=== PATIENT | male | born 1965 | race Caucasian/White ===

== ENCOUNTER 2016-09-04 11:59 | Observation (INO) ==
[2016-09-04] MEDS ORDERED: NITROGLYCERIN SL 0.4 MG TABLET SL ONE (12:20)
[2016-09-04] MEDS ORDERED: NITROGLYCERIN SL 0.4 MG TABLET SL PRN ×2 (12:24→14:25)
[2016-09-04] MEDS ORDERED: ASPIRIN 325 MG TABLET PO STA (12:24)
[2016-09-04] MEDS ORDERED: ENOXAPARIN 100 MG/ML SYRINGE SUBCUT STA (12:24)
--- NOTE | 2016-09-04 12:27 | EKG Report ---
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
[2016-09-04 12:35] LABS: Basophils # 0.1 10*3/uL (0.0-0.2); Basophils % 0.5 % (0.0-0.8); Eosinophils # 0.4 10*3/uL (0.0-0.87); Eosinophils % 3.7 % (0.00-10.9); Hematocrit 47.4 VOL% (42.0-52.0); Hemoglobin 15.7 GM/DL (14.0-18.0); Immature Granulocytes % 0.4 %; Immature Granulocytes Absolute 0.04 #; Lymphocytes # 1.9 10*3/uL (1.4-4.0); Lymphocytes % 17.1 % (21.2-54.2); Mean Corpuscular HGB Conc 33.1 GM/DL (32-36); Mean Corpuscular Hemoglobin 30 PG (27-34); Mean Corpuscular Volume 89.6 FL (87-102); Mean Platelet Volume 10.3 FL (9.6-12.0); Monocytes # 1.1 10*3/uL (0.11-0.8); Monocytes % 9.6 % (1.7-12.7); Neutrophils # 7.7 10*3/uL (1.4-7.4); Neutrophils % 68.7 % (38.7-73.9); Platelet Count 194 T/CUMM (130-400); Red Blood Count 5.29 MC/CUMM (3.8-5.5); Red Cell Distribution Width 12.6 % (9.3-17.3); White Blood Count 11.2 T/CUMM (4-12)
[2016-09-04] MEDS ORDERED: ENOXAPARIN 100 MG/ML SYRINGE SUBCUT ONE (12:38)
[2016-09-04 12:44] LABS: PT Patient Result 10.6 SECS
[2016-09-04 13:08] LABS: Albumin 3.8 G/DL (3.4-5.0); Bilirubin,Total 0.4 MG/DL (0.2-1.0); Calcium 9.1 MG/DL (8.5-10.1); Osmolality,Calculated 294.1 MOS/KG (273-304); Potassium 3.8 MMOL/L (3.5-5.1); Total Protein 7.4 G/DL (6.4-8.3)
--- NOTE | 2016-09-04 13:41 | Emergency Department Note ---
Abhinav Hadley Meredith, am scribing for, and in the presence of, Samir Fajardo MD 12:16. Scotty Hadley Phillip K, MD, personally performed the services described in this documentation, ascribed by Marleen La in my presence, and it is both accurate and complete [id number] . Arrival - Arrival Chief Complaint: Chest Pain Stated Complaint: chest pain/stomach pain ED Nursing Triage Note: c/o pain in lt side of chest for 5 days. also c/o pain in abd. +nausea Mode of Arrival: Ambulatory Limitations: No Limitations Source: Patient, Significant other (), Old Records Reviewed, RN Notes Reviewed Time Seen by Provider: 09/04/16 12:10 - History of Present Illness HPI Narrative: Pt is a 51 y/o white male reporting to the ED with c/o intermittent left-sided chest pain which onset 2 days ago. He describes the pain as a twisting sensation. He took 2 NTG yesterday which did ease his pain. Pt confirms radiation of pain into his left neck, abdominal pain, nausea, and shortness of breath but denies any vomiting, diaphoresis, or fever. He had a history of CAD, HTN, KS, migraine, TIA, IDDM, HLD, gastroparesis, and anaphylaxis. Pt takes ASA daily. He is a former smoker. Onset (ago): day(s) Consistency: intermittent Allergies/Adverse Reactions: Allergies Allergy/AdvReac Type Severity Reaction Status Date / Time diazepam [From Valium] Allergy Confusion Verified 11/06/15 20:29 sulfamethoxazole Allergy Swelling Verified 11/06/15 20:29 [From Bactrim] of Lip/Tongue/Throat trimethoprim [From Bactrim] Allergy Swelling Verified 11/06/15 20:29 of Lip/Tongue/Throat codeine AdvReac Nausea Verified 11/06/15 20:29 Home Medications: Home Medications Medication Instructions Recorded Confirmed Type Methocarbamol Tab [Robaxin Tab] 750 mg PO Q8H 09/17/14 04/27/16 History Promethazine Tab [Phenergan Tab] 25 mg PO Q6H PRN 09/17/14 04/27/16 History Topiramate [Topamax] 100 mg PO BID 02/09/15 04/27/16 History Aspirin Tab 325 mg PO DAILY 08/23/15 04/27/16 History Gabapentin Cap/Tab [Neurontin 1,200 mg PO BID 08/23/15 04/27/16 History Cap/Tab] Liraglutide [Victoza 2-Prakash] 1.2 mg SQ QAM 08/23/15 04/27/16 History Albuterol Inhaler [Proventil 2 puff INH Q6H PRN #1 inhaler 11/06/15 04/27/16 Rx Inhaler] Insulin Aspart [NovoLOG FlexPen] 0 units SUBCUT BID PRN 04/27/16 04/27/16 History Insuln Asp Prt/Insulin Aspart 30 units SUBCUT QPM 04/27/16 04/27/16 History [NovoLOG Mix 70-30 FlexPen] Insuln Asp Prt/Insulin Aspart 70 units SUBCUT QAM 04/27/16 04/27/16 History [NovoLOG Mix 70-30 FlexPen] Lisinopril 2.5 mg PO DAILY 04/27/16 04/27/16 History Metoprolol Succinate 12.5 mg PO DAILY 04/27/16 04/27/16 History Nitroglycerin Sl Tab [Nitrostat] 0.4 mg SL Q5M PRN 04/27/16 04/27/16 History Oxycodone HCl/Acetaminophen 1 each PO Q6H PRN 04/27/16 04/27/16 History [Oxycodone-Acetaminophen 10-325] Ranolazine [Ranexa] 500 mg PO BID 04/27/16 04/27/16 History Simvastatin [Simvastatin] 10 mg PO BEDTIME 04/27/16 04/27/16 History amLODIPine [Norvasc] 2.5 mg PO DAILY 04/27/16 04/27/16 History dimenhyDRINATE TAB [Dramamine] 50 mg PO Q4-6H PRN 04/27/16 04/27/16 History Review of System - Review of System 12 point system: reviewed and no additional remarkable complaints except as stated - Review of System Constitutional: Present: as per HPI. Absent: diaphoresis, fever Respiratory: Present: as per HPI, other (SOB) Cardiovascular: Present: as per HPI, chest pain Gastrointestinal: Present: as per HPI, abdominal pain, nausea. Absent: vomiting Musculoskeletal: Present: as per HPI, neck pain (left-sided radiating from chest ) Medical,Surgical,& Family Hx - Medical History Cardio: History of: CAD, Hypertension, KS (x1 stent, on 08/03/14) Neurology: History of: Migraine, TIA No history of: Seizures HEENT: History of: Ear Problem (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) Endocrine: History of: Diabetes Mellitus (IDDM), Dyslipidemia Gastrointestinal: History of: GI Problems (gastroparesis) Musculoskeletal: History of: Back/Neck Problems Hematology: History of: Blood Transfusion Reaction (ON CHART, BUT PT STATES NO HISTORY OF REACTION TO BLOOD TRANSFUSION) Other: History of: Anaphylaxis (BACTRIM AND CODIENE) - Surgical History Cardiac Surgeries: Sugical HX of: Femoral-Popliteal Bypass Graft (August 2011), Cardiac Catheterization, Cardiac Surgery (cabg 2011 bouble bypass) Abdominal Surgeries: Surgical HX of: Appendectomy, Cholecystectomy, Colonoscopy , EGD - Family History Family History: Reports;: Family Cancer, Family Diabetes (MOTHER, FATHER), Family Heart Disease (MOTHER, FATHER), Family Hypertension (MOTHER, FATHER), Family Stroke Denies;: Family Psychiatric Problems - Social History Smoking Status: Former smoker Frequency of Alcohol Use: Occasionally Type of Drug Use: None Exam Vital Signs: Vital Signs Temperature 97.8 F 09/04/16 12:01 Pulse Rate 99 H 09/04/16 12:01 Respiratory Rate 18 09/04/16 12:01 Blood Pressure 118/86 09/04/16 12:01 O2 Sat by Pulse Oximetry 96 09/04/16 12:01 - General General appearance: alert, in no apparent distress - Head Head exam: Present: atraumatic, normocephalic - Eye Eye exam: Present: normal appearance, PERRL, EOMI - ENT ENT exam: Present: mucous membranes moist, normal external ear exam - Neck Neck exam: Present: full ROM, trachea midline. Absent: tenderness, meningismus , lymphadenopathy, thyromegaly - Chest Chest inspection: Present: symmetric chest wall rise. Absent: tenderness, rash - Respiratory Respiratory exam: Present: normal lung sounds bilaterally. Absent: respiratory distress - Cardiovascular Cardiovascular exam: Present: regular rate, normal rhythm, normal heart sounds. Absent: murmur, rubs, gallop - Abdominal Exam Abdominal exam: Present: soft, normal bowel sounds. Absent: distention, tenderness - Extremities Exam Extremities exam: Present: full ROM, normal capillary refill. Absent: tenderness, pedal edema, calf tenderness - Back Exam Back exam: Present: full ROM. Absent: tenderness - Neurological Exam Neurological exam: Present: alert, oriented X3, CN II-XII intact. Absent: motor sensory deficit - Psychiatric Psychiatric exam: Present: normal affect, normal mood - Skin Skin exam: Present: warm, dry, intact, normal color Course Course Narrative: Patient discussed with Wilder who will admit and evaluate in the ED. Results - Labs CBC & BMP: 09/04/16 12:22 09/04/16 12:22 Lab Results: I have reviewed the patients labs Labs: Laboratory Tests 09/04/16 12:22 WBC 11.2 RBC 5.29 Hgb 15.7 Hct 47.4 Plt Count 194 Lymph % (Auto) 17.1 L Neut # (Auto) 7.7 H [place] # (Auto) 1.1 H Laboratory Tests 09/04/16 12:22 INR 1.0 PT Patient/Control Mix 10.6 - EKG EKG results: interpreted by PAUL, sinus rhythm (nonspecific ST-T changes) - Diagnostic Findings Procedure: Chest x-ray: report reviewed by me (No acute cardiopulmonary disease. ) Disposition Clinical Impression: Unstable angina, History of coronary artery bypass graft x 2, Diabetes mellitus , Status post angioplasty with stent, Essential hypertension, Dyslipidemia Case discussed with: patient, patient's family Disposition: Still a Patient Condition: Guarded Additional Instructions: Admit to Dr. Hdz
--- NOTE | 2016-09-04 13:52 | XRay Report ---
XR chest 1V Indication: Chest pain. Chest one view: Comparison 04/27/2016. ACDF and median sternotomy wires are again shown. Heart size and mediastinal contour remain normal. No infiltrates. Mildly coarsened interstitial markings and lungs are stable. Scattered calcified granulomata are stable. Impression: No acute cardiopulmonary disease. PROCEDURE INTERPRETED AT [facility] DEPARTMENT OF RADIOLOGY Final Report Signed by: Coy Todd M.D.
--- NOTE | 2016-09-04 14:15 | Cardiology History & Physical ---
<Judy Childs E - Last Filed: 09/04/16 14:28> Assessment and Plan - Time spent with patient Time spent with patient: Greater than 30 minutes (1) Sleep apnea Status: Chronic Assessment and plan: SEE PLAN OF CARE LISTED BELOW Current Visit: Yes (2) Right calf pain Status: Acute Assessment and plan: SEE PLAN OF CARE LISTED BELOW Current Visit: Yes (3) Chest pain Status: Acute Assessment and plan: SEE PLAN OF CARE LISTED BELOW Current Visit: No Qualifiers: Chest pain type: chest pain due to myocardial ischemia Qualified Code(s): I20.9 - Angina pectoris, unspecified (4) Diabetes mellitus Status: Chronic Assessment and plan: SEE PLAN OF CARE LISTED BELOW Current Visit: No (5) History of coronary artery bypass graft x 2 Status: Chronic Assessment and plan: SEE PLAN OF CARE LISTED BELOW Current Visit: Yes (6) Diabetes mellitus Status: Chronic Assessment and plan: SEE PLAN OF CARE LISTED BELOW Current Visit: Yes (7) Dyslipidemia Status: Chronic Assessment and plan: SEE PLAN OF CARE LISTED BELOW Current Visit: Yes (8) Essential hypertension Status: Chronic Assessment and plan: SEE PLAN OF CARE LISTED BELOW Current Visit: Yes History of Present Illness Chief complaint: Chest pain, known coronary artery disease History of present illness: Patient is being seen in the emergency department at [facility]. Mr. Solano is a 51 year old male routinely followed by Dr. Ricco Gresham. He was last seen in cardiology clinic June 27, 2016. Risk factors include: Known coronary artery disease, diabetes, hypertension, dyslipidemia, obesity, sedentary lifestyle, family history of premature coronary artery disease. He has a history of coronary artery bypass grafting 2 August 16, [address] Jenkins with the following noted: SWANSON to LAD, SVG to OM1. Last cardiac catheterization February 11, [address] Gresham revealed the followin.) 1 if 2 grafts patent with occlusion of the circumflex vein graft no supplied by collaterals from the distal right and from the diagonal branches of LAD 2.) Severe algaaciq multivessel coronary artery disease 3.) Normal left ventricular size and function. At that point, recurrent pain was thought to be in the circumflex distribution. Repeat coronary bypass to the circumflex coronary artery was an option for medical management [place] at that time. Patient reports on Saturday mid afternoon, he began to experience chest pain described as "twisting and pulling" in the left chest area. This occurred when he was walking back from fishing. This waxed and waned and caused moderate shortness of breath. On Saturday, he continued to have the chest discomfort. It began to radiate to the left jaw into the left arm. He took 2 nitroglycerin and the discomfort improved. He rates his discomfort as a 7 on a scale of 1- 10. He can identify no aggravating nor any alleviating factors other than nitroglycerin. Because the discomfort continued, he felt as if he should be evaluated and he is being seen in the emergency department. He is currently chest pain-free after 1 sublingual nitroglycerin has been given. His first set of cardiac biomarkers are negative, EKG does not reveal an acute event. He is agreeable for hospitalization and he will be transferred to our telemetry unit where Dr. Gresham will see, evaluate and make additional recommendations. ASSESSMENT/PLAN: 1. CHEST PAIN -continue to cycle his cardiac biomarkers and EKG. Continue aspirin, beta blockade, DRU inhibitor, nitrates, lipid-lowering agent and Ranexa. Consider increasing dose of Ranexa. Will consider ordering echo outpatient. 2. KNOWN CAD S/P CABG X 2 2011 -SWANSON to LAD, SVG to OM 1. 3. HYPERTENSION -reports good control. Will adjust medications accordingly during the hospital stay. May consider stopping Norvasc and increasing DRU inhibitor if labs will allow. 4. DYSLIPIDEMIA -specifically hypertriglyceridemia by report. Fasting lipid profile in the morning. 5. DIABETES -sliding scale insulin at this time. 6. OBESITY -dietary counseling prior to discharge 7. SLEEP APNEA -patient is in the process of getting an appointment to see sleep medicine. In the past, he has sleep device but was not compliant with the mask therefore it was taken away. He is in the process of getting restudied. Will consider possible consult for sleep medicine while hospitalized versus outpatient appointment 8. RIGHT CALF PAIN - d-Dimer, venous US Home Medications Medication Instructions Recorded Confirmed Type Methocarbamol Tab [Robaxin Tab] 750 mg PO TID PRN 09/17/14 09/04/16 History Promethazine Tab [Phenergan Tab] 25 mg PO Q6H PRN 09/17/14 09/04/16 History Topiramate [Topamax] 100 mg PO QAM 02/09/15 09/04/16 History Albuterol Inhaler [Proventil 2 puff INH Q6H PRN #1 inhaler 11/06/15 09/04/16 Rx Inhaler] Insulin Aspart [NovoLOG FlexPen] See Protocol SUBCUT BID PRN 04/27/16 09/04/16 History Insuln Asp Prt/Insulin Aspart 30 units SUBCUT QPM 04/27/16 09/04/16 History [NovoLOG Mix 70-30 FlexPen] Insuln Asp Prt/Insulin Aspart 70 units SUBCUT QAM 04/27/16 09/04/16 History [NovoLOG Mix 70-30 FlexPen] Metoprolol Succinate 12.5 mg PO QPM 04/27/16 09/04/16 History Nitroglycerin Sl Tab [Nitrostat] 0.4 mg SL Q5M PRN 04/27/16 09/04/16 History Albuterol Sulfate [Proair HFA] 2 puff INH Q4H PRN 09/04/16 09/04/16 History Aspirin EC Tab 325 mg PO DAILY 09/04/16 09/04/16 History Canagliflozin [Invokana] 100 mg PO QAM 09/04/16 09/04/16 History Ergocalciferol (Vitamin D2) 50,000 unit PO MO 09/04/16 09/04/16 History [Vitamin D2] Gabapentin 1,200 mg PO BID 09/04/16 09/04/16 History Magnesium Chloride [Slow Mag] 64 mg PO DAILY 09/04/16 09/04/16 History Oxycodone HCl/Acetaminophen 1 each PO Q6H PRN 09/04/16 09/04/16 History [Oxycodone-Acetaminophen 10-325] Topiramate [Topamax] 150 mg PO BEDTIME 09/04/16 09/04/16 History tiZANidine [Zanaflex] 4 mg PO TID PRN 09/04/16 09/04/16 History Atorvastatin [Lipitor] 20 mg PO BEDTIME #30 tablet 09/05/16 Rx Azithromycin [Azithromycin Z Pack] 250 mg PO DIRECTED #1 packet 09/05/16 Rx Lisinopril [Prinivil] 5 mg PO DAILY #30 tablet 09/05/16 Rx Ranolazine [Ranexa] 1,000 mg PO BID #60 tablet 09/05/16 Rx Allergies Allergy/AdvReac Type Severity Reaction Status Date / Time diazepam [From Valium] Allergy Confusion Verified 11/06/15 20:29 sulfamethoxazole Allergy Swelling Verified 11/06/15 20:29 [From Bactrim] of Lip/Tongue/Throat trimethoprim [From Bactrim] Allergy Swelling Verified 11/06/15 20:29 of Lip/Tongue/Throat codeine AdvReac Nausea Verified 11/06/15 20:29 Review of systems: REVIEW OF SYSTEMS: - Constitutional Constitutional: Present: Fatigue. Absent: syncope, anorexia, night sweats - EENT Eyes: Absent: blurry vision, loss of vision, diplopia Ears: Absent: decreased hearing, ear pain, ear discharge - Cardiovascular Cardiovascular: Present: chest pain with exertion and at rest associated with mild shortness of breath. Denies edema, palpitations. Absent: chest pain with deep breath. Legs tire when walking but no cramping. - Respiratory Respiratory: Denies BROWN, cough. Absent: wheezing, hemoptysis, change in phlegm color - Gastrointestinal Gastrointestinal: Denies constipation. Absent: abdominal pain, hematemesis, hematochezia, melena, change in bowel habits, nausea - Genitourinary Genitourinary: Absent: difficulty urinating, dysuria, urinary hesitancy, flank pain - Musculoskeletal Musculoskeletal: Present: back pain Absent: joint swelling, muscle cramps, muscle weakness - Neurological Neurological: Present: normal gait without frequent falls. Absent: dizziness, hemiparesis - Psychiatric Psychiatric: Absent: anxiety, depression, difficulty concentrating - Endocrine Endocrine: Present: fatigue. Absent: cold intolerance, heat intolerance, polyuria, polyphagia, polydipsia - Hematologic/Lymphatic Hematologic/Lymphatic: Present: easy bruising. Absent: easy bleeding -Integumentary Integumentary: Right lower extremity reveals red raised rash. Absent: Skin breakdown Medical,Surgical,& Family Hx - Medical History Cardio: History of: CAD, Hypertension, [place] (x1 stent, on 08/03/14) Neurology: History of: Migraine, TIA No history of: Seizures HEENT: History of: Ear Problem (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) Endocrine: History of: Diabetes Mellitus (IDDM), Dyslipidemia Gastrointestinal: History of: GI Problems (gastroparesis, pancreatitis) Musculoskeletal: History of: Back/Neck Problems Hematology: History of: Blood Transfusion Reaction (ON CHART, BUT PT STATES NO HISTORY OF REACTION TO BLOOD TRANSFUSION) Other: History of: Anaphylaxis (BACTRIM AND CODIENE) - Surgical History Cardiac Surgeries: Sugical HX of: Femoral-Popliteal Bypass Graft (August 2011), Cardiac Catheterization, Cardiac Surgery (cabg 2011 bouble bypass) Abdominal Surgeries: Surgical HX of: Appendectomy, Cholecystectomy, Colonoscopy , EGD - Family History Family History: Reports;: Family Cancer, Family Diabetes (MOTHER, FATHER), Family Heart Disease (MOTHER, FATHER), Family Hypertension (MOTHER, FATHER), Family Stroke Denies;: Family Psychiatric Problems - Social History Smoking Status: Former smoker Have you smoked in the last 12 months: No Frequency of Alcohol Use: Occasionally Type of Drug Use: None Marital Status: Lives With:: Spouse Functional capacity: independent ambulation Cardiology Physical Exam - Constitutional Vitals: Vital Signs Temp Pulse Resp BP Pulse Ox 97.8 F 99 H 18 118/86 96 09/04/16 12:01 09/04/16 12:01 09/04/16 12:01 09/04/16 12:01 09/04/16 12:01 Intake and Output 09/03/16 09/04/16 09/04/16 23:59 07:59 15:59 Other: Weight 98.43 kg Patient Weight 09/04/16 23:59 Weight 98.43 kg Exam: General: [Appears well with no apparent distress.] [Pleasant and cooperative. ] [Appears comfortable.] HEENT: [PERRL, normocephalic, atraumatic. Mucous membranes moist. No jaundice noted. Conjunctiva moist and clear, sclerae anicteric] Neck: No JVD/HJR, no thyromegaly or lymphadenopathy noted. No carotid bruit appreciated Cardiac: [Regular rate and rhythm.] [No murmur rub or gallop.] Lungs: [Clear to auscultation without accessory muscle use to assist the respiratory pattern.] Not requiring oxygen Abdomen: Soft, bowel sounds normoactive. Nontender and nondistended. No abdominal bruit or thrill noted. No masses noted. Musculoskeletal: No fluid collection. Decreased range of motion is noted. Extremities: No clubbing, cyanosis noted. [ No edema noted.] Upper extremity pulses 2+. Lower extremity pulses 1+. Tenderness noted to right calf area. Capillary refill less than 3 seconds. Skin: Red raised rash noted to right medial lower extremity. No skin breakdown appreciated. Neuro: Awake, alert and oriented 3. Moves all extremities well without hemiparesis or paralysis. No essential tremor is appreciated. Result/EKG - Labs CBC & BMP: 09/04/16 12:22 09/04/16 12:22 Lab Results: I have reviewed the past 24 hour labs Labs: Laboratory Results - last 24 hr 09/04/16 09/04/16 09/04/16 12:22 12:22 12:22 WBC 11.2 RBC 5.29 Hgb 15.7 Hct 47.4 MCV 89.6 MCH 30 MCHC 33.1 RDW 12.6 Plt Count 194 MPV 10.3 Neut % (Auto) 68.7 Lymph % (Auto) 17.1 L Peach % (Auto) 9.6 Eos % (Auto) 3.7 Baso % (Auto) 0.5 Neut # (Auto) 7.7 H Lymph # (Auto) 1.9 Peach # (Auto) 1.1 H Eos # (Auto) 0.4 Baso # (Auto) 0.1 Immature Gran % 0.4 Nucleated RBC % 0.0 Immature Gran # 0.04 Nucleated RBCs # 0.00 INR 1.0 PT Patient/Control Mix 10.6 Sodium 142 Potassium 3.8 Chloride 108 H Carbon Dioxide 21 Anion Gap 16.8 H BUN 21 H Creatinine 1.00 GFR Calculation 106 BUN/Creatinine Ratio 21.00 H Glucose 261 H Calculated Osmolality 294.1 Calcium 9.1 Magnesium 2.0 Total Bilirubin 0.40 AST 17 ALT 32 Alkaline Phosphatase 81 Troponin I Total Protein 7.4 Albumin 3.8 Globulin 3.6 H Albumin/Globulin Ratio 1.0 L 09/04/16 12:22 WBC RBC Hgb Hct MCV MCH MCHC RDW Plt Count MPV Neut % (Auto) Lymph % (Auto) Peach % (Auto) Eos % (Auto) Baso % (Auto) Neut # (Auto) Lymph # (Auto) Peach # (Auto) Eos # (Auto) Baso # (Auto) Immature Gran % Nucleated RBC % Immature Gran # Nucleated RBCs # INR PT Patient/Control Mix Sodium Potassium Chloride Carbon Dioxide Anion Gap BUN Creatinine GFR Calculation BUN/Creatinine Ratio Glucose Calculated Osmolality Calcium Magnesium Total Bilirubin AST ALT Alkaline Phosphatase Troponin I < 0.015 Total Protein Albumin Globulin Albumin/Globulin Ratio - Diagnostic Findings Procedure: Chest x-ray: report reviewed by me - EKG EKG results: interpreted by me EKG shows: sinus rhythm <Marcelo Gresham - Last Filed: 09/05/16 11:06> History of Present Illness History of present illness: Mr. Solano is a 51 year old male well known to me. He is with fairly constant chest pain and I do not think that this is active ischemic heart disease. He does have an area in the circumflex distribution which is going to be a cause for significant ischemia. He does have multiple etiologies of chest discomfort and I do not think this is cardiac and we will plan to be certain that his enzymes are negative and then perform outpatient evaluation. Cardiology Physical Exam - Constitutional Vitals: Vital Signs Temp Pulse Resp BP Pulse Ox 97.9 F 97 H 18 130/89 100 09/05/16 08:00 09/05/16 08:00 09/05/16 08:00 09/05/16 08:00 09/05/16 08:00 Intake and Output 09/04/16 09/05/16 09/05/16 23:59 07:59 15:59 Intake Total 240 / 240 Balance 240 / 240 Intake: Oral 240 / 240 Other: Voiding Method Toilet Toilet # Voids 2 1 # Bowel Movements 1 1 Result/EKG - Labs CBC & BMP: 09/05/16 08:43 09/05/16 08:43 Labs: Laboratory Results - last 24 hr 09/04/16 09/04/16 09/04/16 16:45 18:04 18:04 WBC 10.0 RBC 5.04 Hgb 14.7 Hct 44.8 MCV 88.9 MCH 29 MCHC 32.8 RDW 12.7 Plt Count 190 MPV 10.6 Neut % (Auto) 58.1 Lymph % (Auto) 26.5 Peach % (Auto) 10.0 Eos % (Auto) 4.3 Baso % (Auto) 0.6 Neut # (Auto) 5.8 Lymph # (Auto) 2.6 Peach # (Auto) 1.0 H Eos # (Auto) 0.4 Baso # (Auto) 0.1 Immature Gran % 0.5 Nucleated RBC % 0.0 Immature Gran # 0.05 Nucleated RBCs # 0.00 INR PT Patient/Control Mix D-Dimer, Quantitative Sodium Potassium Chloride Carbon Dioxide Anion Gap BUN Creatinine GFR Calculation BUN/Creatinine Ratio Glucose POC Glucose 108 H Calculated Osmolality Calcium Magnesium Troponin I < 0.015 Free T4 TSH 3rd Generation 09/04/16 09/04/16 09/04/16 18:04 18:04 19:53 WBC RBC Hgb Hct MCV MCH MCHC RDW Plt Count MPV Neut % (Auto) Lymph % (Auto) Peach % (Auto) Eos % (Auto) Baso % (Auto) Neut # (Auto) Lymph # (Auto) Peach # (Auto) Eos # (Auto) Baso # (Auto) Immature Gran % Nucleated RBC % Immature Gran # Nucleated RBCs # INR PT Patient/Control Mix D-Dimer, Quantitative <= 0.5 Sodium Potassium Chloride Carbon Dioxide Anion Gap BUN Creatinine GFR Calculation BUN/Creatinine Ratio Glucose POC Glucose 231 H Calculated Osmolality Calcium Magnesium Troponin I Free T4 1.03 TSH 3rd Generation 0.873 09/04/16 09/05/16 09/05/16 21:42 08:01 08:43 WBC 11.2 RBC 4.97 Hgb 14.8 Hct 44.2 MCV 88.9 MCH 30 MCHC 33.5 RDW 12.6 Plt Count 196 MPV 10.7 Neut % (Auto) 67.4 Lymph % (Auto) 18.3 L Peach % (Auto) 9.6 Eos % (Auto) 3.9 Baso % (Auto) 0.4 Neut # (Auto) 7.6 H Lymph # (Auto) 2.1 Peach # (Auto) 1.1 H Eos # (Auto) 0.4 Baso # (Auto) 0.1 Immature Gran % 0.4 Nucleated RBC % 0.0 Immature Gran # 0.05 Nucleated RBCs # 0.00 INR PT Patient/Control Mix D-Dimer, Quantitative Sodium Potassium Chloride Carbon Dioxide Anion Gap BUN Creatinine GFR Calculation BUN/Creatinine Ratio Glucose POC Glucose 187 H Calculated Osmolality Calcium Magnesium Troponin I < 0.015 Free T4 TSH 3rd Generation 09/05/16 09/05/16 09/05/16 08:43 08:43 10:00 WBC RBC Hgb Hct MCV MCH MCHC RDW Plt Count MPV Neut % (Auto) Lymph % (Auto) Peach % (Auto) Eos % (Auto) Baso % (Auto) Neut # (Auto) Lymph # (Auto) Peach # (Auto) Eos # (Auto) Baso # (Auto) Immature Gran % Nucleated RBC % Immature Gran # Nucleated RBCs # INR 1.0 PT Patient/Control Mix 10.0 D-Dimer, Quantitative Sodium 139 Potassium 4.0 Chloride 104 Carbon Dioxide 24 Anion Gap 15.0 BUN 18 Creatinine 0.90 GFR Calculation 121 BUN/Creatinine Ratio 20.00 Glucose 208 H POC Glucose 207 H Calculated Osmolality 284.5 Calcium 8.5 Magnesium 2.0 Troponin I Free T4 TSH 3rd Generation
[2016-09-04] MEDS ORDERED: ALBUTEROL 2.5 MG/3 ML NEB RESP TX PRN (14:25)
[2016-09-04] MEDS ORDERED: oxyCODONE/ACETAMINOPHEN 5-325 MG TABLET PO PRN (14:25)
--- NOTE | 2016-09-04 15:28 | EKG Report ---
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
[2016-09-04] MEDS ORDERED: SODIUM CHLORIDE 0.45% 1,000 ML IV SCH (15:36)
[2016-09-04] MEDS ORDERED: GLUCAGON 1 MG VIAL IM PRN (15:36)
[2016-09-04] MEDS ORDERED: DEXTROSE 50% 25 GM/50 ML VIAL IV PRN (15:36)
--- NOTE | 2016-09-04 16:43 | Ultrasound Report ---
Bilateral lower extremity venous Doppler with claros scale, Spectral Doppler and color-flow analysis performed and interpreted. Indication: Right calf pain. Scanning over both common femoral veins, superficial femoral veins, greater saphenous veins and popliteal veins demonstrates normal compressibility, color flow, and augmentation. Impression: No evidence of DVT seen in either lower extremity. PROCEDURE INTERPRETED AT [facility] DEPARTMENT OF RADIOLOGY Final Report Signed by: Dr. Pamela León
[2016-09-04] MEDS: INSULIN REGULAR 100 UNIT/ML SUBCUT SCH ×2 (16:58→21:24)
[2016-09-04] MEDS: METHOCARBAMOL 750 MG TABLET PO SCH ×2 (16:59→23:04)
[2016-09-04 18:32] LABS: Basophils # 0.1 10*3/uL (0.0-0.2); Basophils % 0.6 % (0.0-0.8); Eosinophils # 0.4 10*3/uL (0.0-0.87); Eosinophils % 4.3 % (0.00-10.9); Hematocrit 44.8 VOL% (42.0-52.0); Hemoglobin 14.7 GM/DL (14.0-18.0); Immature Granulocytes % 0.5 %; Immature Granulocytes Absolute 0.05 #; Lymphocytes # 2.6 10*3/uL (1.4-4.0); Lymphocytes % 26.5 % (21.2-54.2); Mean Corpuscular HGB Conc 32.8 GM/DL (32-36); Mean Corpuscular Hemoglobin 29 PG (27-34); Mean Corpuscular Volume 88.9 FL (87-102); Mean Platelet Volume 10.6 FL (9.6-12.0); Neutrophils # 5.8 10*3/uL (1.4-7.4); Neutrophils % 58.1 % (38.7-73.9); Platelet Count 190 T/CUMM (130-400); Red Blood Count 5.04 MC/CUMM (3.8-5.5); Red Cell Distribution Width 12.7 % (9.3-17.3)
[2016-09-04] MEDS: NITROGLYCERIN 2% OINT 1 INCH/GM PACK TOP SCH (18:44)
[2016-09-04] MEDS ORDERED: INSULIN ASPART PROTAMINE/ASPART 70/30 100 UNIT/ML SUBCUT SCH (19:00)
[2016-09-04 19:02] LABS: Free T4 (Free Thyroxine) 1.03 NG/DL (0.76-1.46); Thyroid Stimulating Hormone 0.873 uIU/ml (0.358-3.74)
[2016-09-04] MEDS ORDERED: SIMVASTATIN 10 MG TABLET PO SCH (21:00)
[2016-09-04] MEDS: RANOLAZINE 500 MG TABLET PO SCH (21:24)
[2016-09-04] MEDS: TOPIRAMATE 100 MG TABLET PO SCH (21:25)
[2016-09-04] MEDS: GABAPENTIN 600 MG TABLET PO SCH (21:25)
[2016-09-05] MEDS: NITROGLYCERIN 2% OINT 1 INCH/GM PACK TOP SCH ×2 (00:02→06:09)
[2016-09-05] MEDS: METHOCARBAMOL 750 MG TABLET PO SCH (06:11)
[2016-09-05 08:15] VITALS: BP 130/89
[2016-09-05] MEDS ORDERED: ASPIRIN 325 MG TABLET PO SCH (09:00)
[2016-09-05] MEDS ORDERED: METOPROLOL SUCCINATE XL 25 MG TABLET PO SCH (09:00)
[2016-09-05] MEDS ORDERED: INSULIN ASPART PROTAMINE/ASPART 70/30 100 UNIT/ML SUBCUT SCH (09:00)
[2016-09-05] MEDS ORDERED: amLODIPine 2.5 MG TABLET PO SCH (09:00)
[2016-09-05] MEDS ORDERED: NON-FORMULARY MEDICATION (Liraglutide [Victoza 2-Pak] 1.2 MG) SQ SCH (09:00)
[2016-09-05] MEDS ORDERED: LISINOPRIL 10 MG TABLET PO SCH (09:00)
[2016-09-05] MEDS ORDERED: LISINOPRIL 2.5 MG TABLET PO SCH (09:00)
[2016-09-05 09:12] LABS: Basophils # 0.1 10*3/uL (0.0-0.2); Basophils % 0.4 % (0.0-0.8); Eosinophils # 0.4 10*3/uL (0.0-0.87); Eosinophils % 3.9 % (0.00-10.9); Hematocrit 44.2 VOL% (42.0-52.0); Hemoglobin 14.8 GM/DL (14.0-18.0); Immature Granulocytes % 0.4 %; Immature Granulocytes Absolute 0.05 #; Lymphocytes # 2.1 10*3/uL (1.4-4.0); Lymphocytes % 18.3 % (21.2-54.2); Mean Corpuscular HGB Conc 33.5 GM/DL (32-36); Mean Corpuscular Hemoglobin 30 PG (27-34); Mean Corpuscular Volume 88.9 FL (87-102); Mean Platelet Volume 10.7 FL (9.6-12.0); Monocytes # 1.1 10*3/uL (0.11-0.8); Monocytes % 9.6 % (1.7-12.7); Neutrophils # 7.6 10*3/uL (1.4-7.4); Neutrophils % 67.4 % (38.7-73.9); Platelet Count 196 T/CUMM (130-400); Red Blood Count 4.97 MC/CUMM (3.8-5.5); Red Cell Distribution Width 12.6 % (9.3-17.3); White Blood Count 11.2 T/CUMM (4-12)
[2016-09-05] MEDS: INSULIN REGULAR 100 UNIT/ML SUBCUT SCH (09:35)
--- NOTE | 2016-09-05 09:45 | Discharge Summary ---
<Judy Childs E - Last Filed: 09/05/16 09:43> Hospital Course - Hospital Course Hospital Course: Mr. Solano is a 51 year old male routinely followed by Dr. Ricco Gresham. He was last seen in cardiology clinic June 27, 2016. Risk factors include: Known coronary artery disease, diabetes, hypertension, dyslipidemia, obesity, sedentary lifestyle, family history of premature coronary artery disease. He has a history of coronary artery bypass grafting 2 August 16, [address] Jenkins with the following noted: SWANSON to LAD, SVG to OM1. Last cardiac catheterization February 11, [address] Gresham revealed the followin.) 1 if 2 grafts patent with occlusion of the circumflex vein graft no supplied by collaterals from the distal right and from the diagonal branches of LAD 2.) Severe [place] multivessel coronary artery disease 3.) Normal left ventricular size and function. At that point, recurrent pain was thought to be in the circumflex distribution. Repeat coronary bypass to the circumflex coronary artery was an option for medical management [place] at that time. Patient reported to the emergency department at [facility] September 04, 2016 with complaints of 2-3 days of consistent chest pain. His cardiac biomarkers were negative, EKG was unremarkable. Chest x-ray was stable and venous ultrasound of lower extremities reveal no evidence of DVT. He acknowledges that he has been exposed to several family members who had an upper respiratory virus and actually felt bad himself last week. This morning, he is doing well. Dr. Gresham has seen patient, evaluated and discussed his plan of care with and Ms. Solano. They are agreeable for discharge today. 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 He will be given a 2-3 week follow-up appoint with Dr. Gresham. Having felt him at maximal medical therapy, patient has been discharged home in stable condition. Following medication changes received: Ranexa was increased from 500 mg orally twice daily to 1000 mg orally twice daily Norvasc discontinued Lisinopril increased from 2.5 mg daily to 5 mg daily Simvastatin discontinued (interaction with Ranexa) Atorvastatin 20 mg orally each evening - Time spent with patient Time with patient DS: Greater than 30 minutes Diagnosis - Discharge Diagnosis (1) Sleep apnea Status: Chronic (2) Right calf pain Status: Resolved (3) Chest pain Status: Resolved (4) Diabetes mellitus Status: Chronic (5) History of coronary artery bypass graft x 2 Status: Chronic (6) Diabetes mellitus Status: Chronic (7) Dyslipidemia Status: Chronic (8) Essential hypertension Status: Chronic Specialty Discharge - Follow Up or Referrals Follow up with: Marcelo Gresham MD [Physician] - 09/24/16 9:20 am (Appointment 2-3 weeks. Will need Lexiscan stress test (unable to walk due to severe neuropathy of his feet) in one week (BMP, Mg+). Hold metoprolol the day prior to and morning of procedure. Reason for Lexiscan: Chest pain, known coronary artery disease) Discharge Plan - Discharge Data Disposition: Disch To Home/Self Care Condition at Discharge: Stable Discharge Diet: heart healthy Activity: resume usual activities as tolerated Hygiene: no restrictions Weight Bearing at Discharge: full weight bearing Driving: no restrictions Contact your physician if you experience:: fever over 101, Difficulty voiding, Redness or swelling, Nausea/Vomiting, Shortness of breath, Bleeding, pain uncontrolled by pain medications - Discharge Medications New Atorvastatin [Lipitor] 20 mg PO BEDTIME #30 tablet Lisinopril [Prinivil] 5 mg PO DAILY #30 tablet Ranolazine [Ranexa] 1,000 mg PO BID #60 tablet Azithromycin [Azithromycin Z Pack] 250 mg PO DIRECTED #1 packet Continue Methocarbamol Tab [Robaxin Tab] 750 mg PO TID PRN PRN Reason: Pain Promethazine Tab [Phenergan Tab] 25 mg PO Q6H PRN PRN Reason: Nausea Topiramate [Topamax] 100 mg PO QAM Albuterol Inhaler [Proventil Inhaler] 2 puff INH Q6H PRN #1 inhaler PRN Reason: Shortness Of Breath/Wheezing Insuln Asp Prt/Insulin Aspart [NovoLOG Mix 70-30 FlexPen] 70 units SUBCUT QAM Insulin Aspart [NovoLOG FlexPen] See Protocol SUBCUT BID PRN PRN Reason: SLIDING SCALE Insuln Asp Prt/Insulin Aspart [NovoLOG Mix 70-30 FlexPen] 30 units SUBCUT QPM Metoprolol Succinate 12.5 mg PO QPM Nitroglycerin Sl Tab [Nitrostat] 0.4 mg SL Q5M PRN PRN Reason: Chest Pain tiZANidine [Zanaflex] 4 mg PO TID PRN PRN Reason: Pain Topiramate [Topamax] 150 mg PO BEDTIME Magnesium Chloride [Slow Mag] 64 mg PO DAILY Gabapentin 1,200 mg PO BID Ergocalciferol (Vitamin D2) [Vitamin D2] 50,000 unit PO MO Aspirin EC Tab 325 mg PO DAILY Albuterol Sulfate [Proair HFA] 2 puff INH Q4H PRN PRN Reason: Shortness Of Breath/Wheezing Oxycodone HCl/Acetaminophen [Oxycodone-Acetaminophen 10-325] 1 each PO Q6H PRN PRN Reason: Pain Canagliflozin [Invokana] 100 mg PO QAM Discontinued Ranolazine [Ranexa] 500 mg PO BID Simvastatin [Simvastatin] 10 mg PO BEDTIME amLODIPine [Norvasc] 2.5 mg PO QPM Lisinopril 2.5 mg PO QPM - Follow Up or Referral Follow Up: Marcelo Gresham MD [Physician] - 09/24/16 9:20 am (Appointment 2-3 weeks. Will need Lexiscan stress test (unable to walk due to severe neuropathy of his feet) in one week (BMP, Mg+). Hold metoprolol the day prior to and morning of procedure. Reason for Lexiscan: Chest pain, known coronary artery disease) - Forms/Instructions Exam - Constitutional Vitals: Period Temp Pulse Resp BP Sys/Ramey Pulse Ox Last 24 Hr 97.0 F-98.1 F 84-99 16-18 116-133/78-96 94-100 Exam: General: [Appears well with no apparent distress.] [Pleasant and cooperative. ] [Appears comfortable.] HEENT: [PERRL, normocephalic, atraumatic. Mucous membranes moist. No jaundice noted. Conjunctiva moist and clear, sclerae anicteric] Neck: No JVD/HJR, no thyromegaly or lymphadenopathy noted. No carotid bruit appreciated Cardiac: [Regular rate and rhythm.] [No murmur rub or gallop.] Lungs: [Clear to auscultation without accessory muscle use to assist the respiratory pattern.] Abdomen: Soft, bowel sounds normoactive. Nontender and nondistended. No abdominal bruit or thrill noted. No masses noted. Musculoskeletal: No fluid collection. Decreased range of motion is noted. Extremities: No clubbing, cyanosis noted. [ No edema noted.] Upper extremity pulses 2+. Lower extremity pulses 2+. Capillary refill less than 3 seconds. Skin: No unusual lesions or rashes. No skin breakdown appreciated. Neuro: Awake, alert and oriented 3. Moves all extremities well without hemiparesis or paralysis. No essential tremor is appreciated. Discharge Results Labs on day of discharge: Labs from last 24 hours 09/05/16 09/05/16 09/05/16 10:00 08:43 08:43 WBC RBC Hgb Hct MCV MCH MCHC RDW Plt Count MPV Neut % (Auto) Lymph % (Auto) Bee % (Auto) Eos % (Auto) Baso % (Auto) Neut # (Auto) Lymph # (Auto) Bee # (Auto) Eos # (Auto) Baso # (Auto) Immature Gran % Nucleated RBC % Immature Gran # Nucleated RBCs # INR 1.0 PT Patient/Control Mix 10.0 D-Dimer, Quantitative Sodium 139 Potassium 4.0 Chloride 104 Carbon Dioxide 24 Anion Gap 15.0 BUN 18 Creatinine 0.90 GFR Calculation 121 BUN/Creatinine Ratio 20.00 Glucose 208 H POC Glucose 207 H Calculated Osmolality 284.5 Calcium 8.5 Magnesium 2.0 Troponin I Free T4 TSH 3rd Generation 09/05/16 09/05/16 09/04/16 08:43 08:01 21:42 WBC 11.2 RBC 4.97 Hgb 14.8 Hct 44.2 MCV 88.9 MCH 30 MCHC 33.5 RDW 12.6 Plt Count 196 MPV 10.7 Neut % (Auto) 67.4 Lymph % (Auto) 18.3 L Bee % (Auto) 9.6 Eos % (Auto) 3.9 Baso % (Auto) 0.4 Neut # (Auto) 7.6 H Lymph # (Auto) 2.1 Bee # (Auto) 1.1 H Eos # (Auto) 0.4 Baso # (Auto) 0.1 Immature Gran % 0.4 Nucleated RBC % 0.0 Immature Gran # 0.05 Nucleated RBCs # 0.00 INR PT Patient/Control Mix D-Dimer, Quantitative Sodium Potassium Chloride Carbon Dioxide Anion Gap BUN Creatinine GFR Calculation BUN/Creatinine Ratio Glucose POC Glucose 187 H Calculated Osmolality Calcium Magnesium Troponin I < 0.015 Free T4 TSH 3rd Generation 09/04/16 09/04/16 09/04/16 19:53 18:04 18:04 WBC RBC Hgb Hct MCV MCH MCHC RDW Plt Count MPV Neut % (Auto) Lymph % (Auto) Bee % (Auto) Eos % (Auto) Baso % (Auto) Neut # (Auto) Lymph # (Auto) Bee # (Auto) Eos # (Auto) Baso # (Auto) Immature Gran % Nucleated RBC % Immature Gran # Nucleated RBCs # INR PT Patient/Control Mix D-Dimer, Quantitative <= 0.5 Sodium Potassium Chloride Carbon Dioxide Anion Gap BUN Creatinine GFR Calculation BUN/Creatinine Ratio Glucose POC Glucose 231 H Calculated Osmolality Calcium Magnesium Troponin I Free T4 1.03 TSH 3rd Generation 0.873 09/04/16 09/04/16 09/04/16 18:04 18:04 16:45 WBC 10.0 RBC 5.04 Hgb 14.7 Hct 44.8 MCV 88.9 MCH 29 MCHC 32.8 RDW 12.7 Plt Count 190 MPV 10.6 Neut % (Auto) 58.1 Lymph % (Auto) 26.5 Bee % (Auto) 10.0 Eos % (Auto) 4.3 Baso % (Auto) 0.6 Neut # (Auto) 5.8 Lymph # (Auto) 2.6 Bee # (Auto) 1.0 H Eos # (Auto) 0.4 Baso # (Auto) 0.1 Immature Gran % 0.5 Nucleated RBC % 0.0 Immature Gran # 0.05 Nucleated RBCs # 0.00 INR PT Patient/Control Mix D-Dimer, Quantitative Sodium Potassium Chloride Carbon Dioxide Anion Gap BUN Creatinine GFR Calculation BUN/Creatinine Ratio Glucose POC Glucose 108 H Calculated Osmolality Calcium Magnesium Troponin I < 0.015 Free T4 TSH 3rd Generation - Imaging and Cardiology Procedure: Chest x-ray: report reviewed by me, Ultrasound: report reviewed by me (Venous ultrasound bilateral lower extremity) DS: Provider Date of admission: 09/04/16 13:54 Primary care physician: . No PCP Attending physician on admission: Marcelo Gresham MD Discharging clinician: Judy Childs NP Expected date of discharge: 09/05/16 <Marcelo Gresham - Last Filed: 09/05/16 11:07> Hospital Course - Hospital Course Hospital Course: I have discussed in detail the particulars of this case and I have examined the patient and reviewed the patient's chart both current and old. I was directly involved in the patient's evaluation and management and I completely agree with Judy Childs NP regarding this patient's evaluation and treatment plan.
[2016-09-05 09:47] LABS: Calcium 8.5 MG/DL (8.5-10.1); Osmolality,Calculated 284.5 MOS/KG (273-304)
[2016-09-05] MEDS: RANOLAZINE 500 MG TABLET PO SCH (10:11)
[2016-09-05] MEDS: GABAPENTIN 600 MG TABLET PO SCH (10:11)
[2016-09-05] MEDS: TOPIRAMATE 100 MG TABLET PO SCH (10:12)
== END 2016-09-05 11:33 | disposition home or self-care (01) ==
LOC: N.ED 11:59 → N.EDINP 11:59 → N.TELES 14:32
PROVIDERS: ADMIT Internal Medicine Interventional Cardiology; ATTEND Internal Medicine Interventional Cardiology

== ENCOUNTER 2017-02-28 18:39 | Observation (INO) ==
[2017-02-28] MEDS ORDERED: ONDANSETRON 4 MG/2 ML VIAL IV STA (19:18)
[2017-02-28] MEDS ORDERED: MORPHINE 2 MG/1 ML SYRINGE IV STA (19:18)
[2017-02-28] MEDS ORDERED: METOPROLOL TARTRATE 25 MG TABLET PO STA (19:18)
[2017-02-28] MEDS ORDERED: ALUM/MAG/SIMETH/LIDO VISC 1:1 30 ML BOTTLE PO STA (19:18)
[2017-02-28] MEDS ORDERED: ASPIRIN 325 MG TABLET PO STA (19:18)
[2017-02-28] MEDS ORDERED: NITROGLYCERIN 2% OINT 1 INCH/GM PACK TOP STA (19:18)
--- NOTE | 2017-02-28 19:22 | EKG Report ---
Stationary ECG Study [facility] ER Test Date: 02/28/2017 6:55:06 PM Pat Name: HUMPHREY VEGA Department: Room: Gender: M Manager Diabetes: dalila : 1965 Requested by: Antony Law Order Number: [id number] Reading MD: CHANDRA ARGUELLO Intervals [place] Rate: 89 P: 54 HI: 162 QRS: 52 QRSD: 106 T: 71 QT: 350 QTc: 396 Interpretive Statements SINUS RHYTHM LEFT ATRIAL ABNORMALITY NONSPECIFIC T-WAVE ABNORMALITY Electronically Signed On 03-02-17 18:11:11 CDT by CHANDRA ARGUELLO [email or web address]
[2017-02-28] MEDS ORDERED: ONDANSETRON 4 MG/2 ML VIAL ONE ×2 (19:32→19:38)
[2017-02-28] MEDS ORDERED: ASPIRIN 325 MG TABLET ONE (19:32)
[2017-02-28] MEDS ORDERED: NITROGLYCERIN 2% OINT 1 INCH/GM PACK TOP ONE (19:32)
[2017-02-28] MEDS ORDERED: ALUM/MAG/SIMETH/LIDO VISC 1:1 30 ML BOTTLE PO ONE (19:32)
[2017-02-28] MEDS ORDERED: MORPHINE 2 MG/1 ML SYRINGE ONE (19:32)
[2017-02-28] MEDS ORDERED: METOPROLOL TARTRATE 25 MG TABLET ONE (19:32)
[2017-02-28 19:36] LABS: Basophils # 0.1 10*3/uL (0.0-0.2); Basophils % 0.8 % (0.0-0.8); Eosinophils # 0.5 10*3/uL (0.0-0.87); Eosinophils % 6.4 % (0.00-10.9); Hematocrit 44.5 VOL% (42.0-52.0); Hemoglobin 15.3 GM/DL (14.0-18.0); Immature Granulocytes % 0.6 %; Immature Granulocytes Absolute 0.05 #; Lymphocytes # 2.4 10*3/uL (1.4-4.0); Lymphocytes % 28.5 % (21.2-54.2); Mean Corpuscular HGB Conc 34.4 GM/DL (32-36); Mean Corpuscular Hemoglobin 30 PG (27-34); Mean Corpuscular Volume 88.1 FL (87-102); Mean Platelet Volume 10.3 FL (9.6-12.0); Monocytes # 0.8 10*3/uL (0.11-0.8); Monocytes % 9.1 % (1.7-12.7); Neutrophils # 4.6 10*3/uL (1.4-7.4); Neutrophils % 54.6 % (38.7-73.9); Platelet Count 186 T/CUMM (130-400); Red Blood Count 5.05 MC/CUMM (3.8-5.5); White Blood Count 8.3 T/CUMM (4-12)
--- NOTE | 2017-02-28 19:42 | XRay Report ---
Portable chest. Indication: Chest pain. Comparison: September 04, 2016. The heart is normal in size. Post median sternotomy. The pulmonary vasculature is normal. The lung kiran are clear. No pneumothorax or pleural effusion. Postsurgical changes in the cervical spine. Impression: No acute abnormality. PROCEDURE INTERPRETED AT [facility] DEPARTMENT OF RADIOLOGY Final Report Signed by: Dr. Pamela León
[2017-02-28 19:46] LABS: INR 0.9; PT Patient Result 9.9 SECS
--- NOTE | 2017-02-28 19:51 | Emergency Department Note ---
Twin aHdley Gwan, am scribing for, and in the presence of, Antony Russo MD 19 :26. Rafaela Hadley Charles R, MD, personally performed the services described in this documentation, ascribed by Sheridan Murcia in my presence, and it is both accurate and complete 950 . Arrival - Arrival Chief Complaint: Chest Pain Stated Complaint: chest pain ED Nursing Triage Note: c/o left sided chest pain radiating into back onset approx 1630pm. Describes as stabbing. +shortness of breath. +nausea. + diaphoresis. Took Nitro and Aspirin prior to arrival with little relief. Mode of Arrival: Ambulatory Limitations: No Limitations Source: Patient, Old Records Reviewed, RN Notes Reviewed Time Seen by Provider: 02/28/17 19:03 - History of Present Illness HPI Narrative: Patient is a 51 y/o male who presents to the ED with a c/o chest pain with an onset 1630 today. Patient describes his discomfort as stabbing and that it radiates into his back and down his arm. He continued to note that he has also had SOB, nausea and diaphoresis. Patient continued to note that with onset, he administered a low dose ASA and nitro with little relief. As the pain returned, patient was prompted to report to ED for further evaluation. Patient is followed by Dr. Enamorado and confirmed that he had a sten placement 08/03/2014 and that he had a heart cath the resulted in stent blockage in [address] Gresham. During exam, patient did not appear to be in any distress. No other problems/complaints reported in ED. Onset (ago): hour(s) Consistency: constant Severity: moderate Allergies/Adverse Reactions: Allergies Allergy/AdvReac Type Severity Reaction Status Date / Time diazepam [From Valium] Allergy Confusion Verified 02/28/17 18:57 sulfamethoxazole Allergy Swelling Verified 02/28/17 18:57 [From Bactrim] of Lip/Tongue/Throat trimethoprim [From Bactrim] Allergy Swelling Verified 02/28/17 18:57 of Lip/Tongue/Throat codeine AdvReac Nausea Verified 02/28/17 18:57 Home Medications: Home Medications Medication Instructions Recorded Confirmed Type Promethazine Tab [Phenergan Tab] 25 mg PO Q6H PRN 09/17/14 02/28/17 History Topiramate [Topamax] 100 mg PO QAM 02/09/15 02/28/17 History Albuterol Inhaler [Proventil 2 puff INH Q6H PRN #1 inhaler 11/06/15 02/28/17 Rx Inhaler] Insulin Aspart Prot/Insuln Asp 30 units SUBCUT QPM 04/27/16 02/28/17 History [NovoLOG Mix 70-30 FlexPen] Insulin Aspart Prot/Insuln Asp 70 units SUBCUT QAM 04/27/16 02/28/17 History [NovoLOG Mix 70-30 FlexPen] Insulin Aspart [NovoLOG FlexPen] See Protocol SUBCUT TIDAC 04/27/16 02/28/17 History Metoprolol Succinate 25 mg PO QPM 04/27/16 02/28/17 History Nitroglycerin Sl Tab [Nitrostat] 0.4 mg SL Q5M PRN 04/27/16 02/28/17 History Aspirin EC Tab 325 mg PO QAM 09/04/16 02/28/17 History Canagliflozin [Invokana] 100 mg PO QAM 09/04/16 02/28/17 History Gabapentin 1,200 mg PO BEDTIME 09/04/16 02/28/17 History Magnesium Chloride [Slow Mag] 64 mg PO QAM 09/04/16 02/28/17 History Topiramate [Topamax] 150 mg PO BEDTIME 09/04/16 02/28/17 History tiZANidine [Zanaflex] 4 mg PO DAILY PRN 09/04/16 02/28/17 History Atorvastatin [Lipitor] 20 mg PO BEDTIME #30 tablet 09/05/16 02/28/17 Rx Gabapentin [Gabapentin] 1,800 mg PO QAM 02/28/17 02/28/17 History Krill/Om-3/Dha/Epa/Phospho/Ast 1 each PO QAM 02/28/17 02/28/17 History [Brashear-3 Krill Oil 300 mg Sfgl] Liraglutide [Victoza 2-Prakash] 1.2 mg SUBCUT QAM 02/28/17 02/28/17 History Lisinopril [Lisinopril] 2.5 mg PO BEDTIME 02/28/17 02/28/17 History Ranolazine [Ranexa] 500 mg PO BID 02/28/17 02/28/17 History amLODIPine [Norvasc] 2.5 mg PO BEDTIME 02/28/17 02/28/17 History Review of System - Review of System 12 point system: reviewed and no additional remarkable complaints except as stated - Review of System Constitutional: Present: as per HPI, diaphoresis Respiratory: Present: as per HPI, other (shortness of breathe ) Cardiovascular: Present: as per HPI, chest pain Gastrointestinal: Present: as per HPI, nausea Medical,Surgical,& Family Hx - Medical History Cardio: History of: CAD, Hypertension, PR (x1 stent, on 08/03/14) Neurology: History of: Migraine, TIA No history of: Seizures HEENT: History of: Ear Problem (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) Endocrine: History of: Diabetes Mellitus (IDDM), Dyslipidemia Gastrointestinal: History of: GI Problems (gastroparesis, pancreatitis) Musculoskeletal: History of: Back/Neck Problems Hematology: History of: Blood Transfusion Reaction (ON CHART, BUT PT STATES NO HISTORY OF REACTION TO BLOOD TRANSFUSION) Other: History of: Anaphylaxis (BACTRIM AND CODIENE) - Surgical History Cardiac Surgeries: Sugical HX of: Femoral-Popliteal Bypass Graft (August 2011), Cardiac Catheterization, Cardiac Surgery (cabg 2011 double bypass) Abdominal Surgeries: Surgical HX of: Appendectomy, Cholecystectomy, Colonoscopy , EGD - Family History Family History: Reports;: Family Cancer, Family Diabetes (MOTHER, FATHER), Family Heart Disease (MOTHER, FATHER), Family Hypertension (MOTHER, FATHER), Family Stroke Denies;: Family Psychiatric Problems - Social History Smoking Status: Former smoker Frequency of Alcohol Use: None Type of Drug Use: None Exam Vital Signs: Vital Signs Temperature 98.7 F 02/28/17 19:15 Pulse Rate 81 02/28/17 21:00 Respiratory Rate 16 02/28/17 21:00 Blood Pressure 132/89 02/28/17 21:00 O2 Sat by Pulse Oximetry 98 02/28/17 21:00 - General General appearance: alert, in no apparent distress - Head Head exam: Present: atraumatic, normocephalic - Eye Eye exam: Present: normal appearance, PERRL, EOMI - ENT ENT exam: Present: normal oropharynx, mucous membranes moist, TM's normal bilaterally, normal external ear exam - Neck Neck exam: Present: full ROM, trachea midline. Absent: tenderness - Chest Chest inspection: Present: symmetric chest wall rise. Absent: tenderness - Respiratory Respiratory exam: Present: rhonchi - Cardiovascular Cardiovascular exam: Present: regular rate, normal rhythm, normal heart sounds. Absent: murmur - Abdominal Exam Abdominal exam: Present: soft, normal bowel sounds. Absent: distention, tenderness - Extremities Exam Extremities exam: Present: full ROM, other (+1 edema bilateral extremities). Absent: tenderness - Back Exam Back exam: Present: full ROM. Absent: tenderness - Neurological Exam Neurological exam: Present: alert, oriented X3, CN II-XII intact. Absent: motor sensory deficit - Psychiatric Psychiatric exam: Present: normal affect, normal mood - Skin Skin exam: Present: warm, dry, intact, normal color Course - Consultations Consultation #1: Dr. Israel will admit patient Time: 21:25 Results - Labs CBC & BMP: 02/28/17 19:15 02/28/17 19:15 Lab Results: I have reviewed the patients labs Labs: Laboratory Tests 02/28/17 19:15 WBC 8.3 RBC 5.05 Hgb 15.3 Hct 44.5 Plt Count 186 Laboratory Tests 02/28/17 19:15 INR 0.9 PT Patient/Control Mix 9.9 Laboratory Tests 02/28/17 19:15 Sodium 136 Potassium 4.0 Chloride 104 Carbon Dioxide 23 BUN 23 H Creatinine 1.00 BUN/Creatinine Ratio 23.00 H Glucose 347 H Globulin 3.8 H Albumin/Globulin Ratio 0.9 L Laboratory Tests 02/28/17 19:15 B-Natriuretic Peptide 9 - Diagnostic Findings Procedure: Chest x-ray: report reviewed by me (No acute abnormality seen. ) Disposition Clinical Impression: History of coronary artery bypass graft x 2, Chest pain, Unstable angina pectoris, Chest pain Case discussed with: patient, patient's family Disposition: Still a Patient Condition: Stable Time of Disposition: 21:25 Contact your physician if you experience:: fever over 101, Difficulty voiding, Redness or swelling, Nausea/Vomiting, Shortness of breath, Bleeding, pain uncontrolled by pain medications, Other Return to the Emergency Department if:: fever over 101, Difficulty voiding, Redness or swelling, Nausea/Vomiting, Shortness of breath, Bleeding, pain uncontrolled by pain medications, Other
[2017-02-28 19:56] LABS: Alanine Aminotransferase 38 U/L (16-61); Albumin 3.5 G/DL (3.4-5.0); Alkaline Phosphatase 68 U/L (45-117); Aspartate Amino Transferase 22 U/L (0-37); Bilirubin,Total < 0.39 MG/DL (0.2-1.0); Blood Urea Nitrogen 23 MG/DL (7-18); Calcium 8.6 MG/DL (8.5-10.1); Glucose 347 MG/DL (74-106); Sodium 136 MMOL/L (136-145); Total Protein 7.3 G/DL (6.4-8.3)
[2017-02-28] MEDS ORDERED: ENOXAPARIN 100 MG/ML SYRINGE SUBCUT STA (21:26)
[2017-02-28] MEDS ORDERED: POTASSIUM CHLORIDE 20 MEQ TABLET PO PRN (23:36)
[2017-02-28] MEDS ORDERED: SODIUM CHLORIDE 0.9% 1,000 ML IV SCH (23:36)
[2017-02-28] MEDS ORDERED: DEXTROSE 50% 25 GM/50 ML SYRINGE IV PRN (23:36)
[2017-02-28] MEDS ORDERED: PROMETHAZINE 25 MG TABLET PO PRN (23:36)
[2017-02-28] MEDS ORDERED: MAGNESIUM SULF RIDER 4 GM in PREMIX 1 EACH IV PRN (23:36)
[2017-02-28] MEDS ORDERED: MORPHINE 2 MG/1 ML SYRINGE IV PRN (23:36)
[2017-02-28] MEDS ORDERED: tiZANidine 4 MG TABLET PO PRN (23:36)
[2017-02-28] MEDS ORDERED: NITROGLYCERIN SL 0.4 MG TABLET SL PRN (23:36)
[2017-02-28] MEDS ORDERED: MAGNESIUM SULF RIDER 2 GM in PREMIX 1 EACH IV PRN (23:36)
[2017-02-28] MEDS ORDERED: GLUCAGON 1 MG VIAL IM PRN (23:36)
[2017-02-28] MEDS ORDERED: ONDANSETRON 4 MG/2 ML VIAL IV PRN (23:36)
[2017-02-28] MEDS ORDERED: ALBUTEROL 2.5 MG/3 ML NEB RESP TX PRN (23:36)
[2017-02-28] MEDS: NITROGLYCERIN 2% OINT 1 INCH/GM PACK TOP SCH (23:56)
--- NOTE | 2017-03-01 00:18 | EKG Report ---
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
[2017-03-01 01:34] LABS: Basophils # 0.1 10*3/uL (0.0-0.2); Basophils % 0.8 % (0.0-0.8); Eosinophils # 0.6 10*3/uL (0.0-0.87); Hematocrit 42.2 VOL% (42.0-52.0); Hemoglobin 14.3 GM/DL (14.0-18.0); Immature Granulocytes % 0.7 %; Immature Granulocytes Absolute 0.06 #; Lymphocytes # 3.2 10*3/uL (1.4-4.0); Lymphocytes % 36.1 % (21.2-54.2); Mean Corpuscular HGB Conc 33.9 GM/DL (32-36); Mean Corpuscular Hemoglobin 30 PG (27-34); Mean Corpuscular Volume 88.3 FL (87-102); Mean Platelet Volume 11.1 FL (9.6-12.0); Monocytes % 10.6 % (1.7-12.7); Neutrophils % 44.8 % (38.7-73.9); Platelet Count 187 T/CUMM (130-400); Red Blood Count 4.78 MC/CUMM (3.8-5.5); Red Cell Distribution Width 13.1 % (9.3-17.3)
[2017-03-01 01:44] LABS: Alanine Aminotransferase 34 U/L (16-61); Albumin 3.4 G/DL (3.4-5.0); Alkaline Phosphatase 62 U/L (45-117); Aspartate Amino Transferase 18 U/L (0-37); Bilirubin,Total < 0.39 MG/DL (0.2-1.0); Blood Urea Nitrogen 20 MG/DL (7-18); Calcium 8.6 MG/DL (8.5-10.1); Cholesterol 164 MG/DL (50-200); Glucose 257 MG/DL (74-106); HDL Cholesterol 25 MG/DL (40-60); Magnesium 2.1 MG/DL (1.8-2.4); Osmolality,Calculated 284.8 MOS/KG (273-304); Potassium 3.9 MMOL/L (3.5-5.1); Risk Ratio 6.56; Sodium 137 MMOL/L (136-145); Total Protein 6.6 G/DL (6.4-8.3); Triglycerides 624 MG/DL (2-150); VLDL CHOLESTEROL 124.8 MG/DL
[2017-03-01] MEDS: NITROGLYCERIN 2% OINT 1 INCH/GM PACK TOP SCH (06:28)
--- NOTE | 2017-03-01 06:34 | EKG Report ---
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
[2017-03-01] MEDS ORDERED: POTASSIUM CHLORIDE RIDER 10 MEQ in PREMIX 1 EACH IV PRN (06:41)
[2017-03-01] MEDS ORDERED: diphenhydrAMINE CAP 25 MG CAPSULE PO ONE (06:41)
[2017-03-01] MEDS ORDERED: MAGNESIUM SULF RIDER 2 GM in PREMIX 1 EACH IV PRN (06:41)
[2017-03-01] MEDS ORDERED: TICAGRELOR 90 MG TABLET PO ONE (06:43)
--- NOTE | 2017-03-01 06:49 | Cardiology History & Physical ---
Assessment and Plan - Time spent with patient Time spent with patient: Greater than 30 minutes (exam, interview, chart review , film review) (1) Diabetes mellitus Status: Chronic Current Visit: No (2) Essential hypertension Status: Chronic Current Visit: No (3) Dyslipidemia Status: Chronic Current Visit: No (4) Unstable angina Status: Acute Current Visit: No (5) History of coronary artery bypass graft x 2 Status: Chronic Current Visit: Yes (6) Status post angioplasty with stent Status: Chronic Current Visit: No (7) Sleep apnea Status: Chronic Current Visit: No History of Present Illness Chief complaint: Chest pain History of present illness: Mr. Solano is a 51 year old male with known coronary disease he had coronary bypass grafting in 2012. At his most recent left heart catheterization on 2014 he had only a SWANSON to the LAD patent graft. He had a high-grade stenosis in a small first diagonal. He has a 100% occluded in-stent restenosis of proximal circumflex and has significant ulceration plaque in luminal irregularities with no high-grade epicardial stenosis and RCA that supplies collateralization to the first obtuse marginal and circumflex distribution. The patient has uncontrolled diabetes on multiple medications. He has not on antiplatelet regimen he takes 325 mg of aspirin twice a day. The patient is obese and extremely sedentary has a strong family history of coronary disease and known coronary history. Yesterday the patient states he developed a sharp pain that initially was "stabbing" under his left scapula then he states radiated into his chest and up into his arm associated with nausea and diaphoresis. The patient took medications without much relief he came to the emergency room had relief with simultaneous intervention with GI cocktail morphine and nitrates. The patient has no diagnostic ST segment changes and he has 3 sets of negative cardiac biomarkers. Due to his known coronary disease and CT of the left circumflex additional evaluation with noninvasive methods is of little benefit. The patient states this is pain exactly like he had experienced before in quantity and quality. It was as bad as 7 out of 10. The patient is currently pain-free. I discussed with him risks benefits and options and he is agreeable to proceed with left heart catheterization. He states that he "does not take" Valium but states that he has not had problems in the past with IV conscious sedation administered in the [employer]. Patient is agreeable to proceed as discussed with he and his . I reviewed his labs his EKGs and his charts and his old films. Patient will be set up for left heart catheterization this morning at 730. Home Medications Medication Instructions Recorded Confirmed Type Promethazine Tab [Phenergan Tab] 25 mg PO Q6H PRN 09/17/14 02/28/17 History Topiramate [Topamax] 100 mg PO QAM 02/09/15 02/28/17 History Albuterol Inhaler [Proventil 2 puff INH Q6H PRN #1 inhaler 11/06/15 02/28/17 Rx Inhaler] Insulin Aspart Prot/Insuln Asp 30 units SUBCUT QPM 04/27/16 02/28/17 History [NovoLOG Mix 70-30 FlexPen] Insulin Aspart Prot/Insuln Asp 70 units SUBCUT QAM 04/27/16 02/28/17 History [NovoLOG Mix 70-30 FlexPen] Insulin Aspart [NovoLOG FlexPen] See Protocol SUBCUT TIDAC 04/27/16 02/28/17 History Metoprolol Succinate 25 mg PO QPM 04/27/16 02/28/17 History Nitroglycerin Sl Tab [Nitrostat] 0.4 mg SL Q5M PRN 04/27/16 02/28/17 History Aspirin EC Tab 325 mg PO QAM 09/04/16 02/28/17 History Canagliflozin [Invokana] 100 mg PO QAM 09/04/16 02/28/17 History Gabapentin 1,200 mg PO BEDTIME 09/04/16 02/28/17 History Magnesium Chloride [Slow Mag] 64 mg PO QAM 09/04/16 02/28/17 History Topiramate [Topamax] 150 mg PO BEDTIME 09/04/16 02/28/17 History tiZANidine [Zanaflex] 4 mg PO DAILY PRN 09/04/16 02/28/17 History Atorvastatin [Lipitor] 20 mg PO BEDTIME #30 tablet 09/05/16 02/28/17 Rx Gabapentin [Gabapentin] 1,800 mg PO QAM 02/28/17 02/28/17 History Krill/Om-3/Dha/Epa/Phospho/Ast 1 each PO QAM 02/28/17 02/28/17 History [[place]-3 Krill Oil 300 mg Sfgl] Liraglutide [Victoza 2-Prakash] 1.2 mg SUBCUT QAM 02/28/17 02/28/17 History Lisinopril [Lisinopril] 2.5 mg PO BEDTIME 02/28/17 02/28/17 History Ranolazine [Ranexa] 500 mg PO BID 02/28/17 02/28/17 History amLODIPine [Norvasc] 2.5 mg PO BEDTIME 02/28/17 02/28/17 History Allergies Allergy/AdvReac Type Severity Reaction Status Date / Time diazepam [From Valium] Allergy Confusion Verified 02/28/17 18:57 sulfamethoxazole Allergy Swelling Verified 02/28/17 18:57 [From Bactrim] of Lip/Tongue/Throat trimethoprim [From Bactrim] Allergy Swelling Verified 02/28/17 18:57 of Lip/Tongue/Throat codeine AdvReac Nausea Verified 02/28/17 18:57 - Constitutional Constitutional: Present: weight gain. Absent: anorexia, chills, fever(s), frequent falls, weakness, weight loss - EENT Eyes: Absent: blurry vision, diplopia Ears: Absent: decreased hearing, ear discharge Nose, mouth and throat: Present: headache(s) (now after getting nitrates). Absent: hoarseness, lip swelling, nasal congestion, sore throat, throat swelling , tongue swelling, vertigo - Cardiovascular Cardiovascular: Present: chest pain at rest, dyspnea, dyspnea on exertion (he is extremely) - Respiratory Respiratory: Present: dyspnea, dyspnea on exertion - Gastrointestinal Gastrointestinal: Present: heartburn, nausea. Absent: coffee ground emesis, constipation, cramping, diarrhea, dyspepsia - Genitourinary Genitourinary: Absent: difficulty urinating, dysuria - Musculoskeletal Musculoskeletal: Absent: arthralgias, joint swelling - Neurological Neurological: Absent: abnormal gait, disequilibrium - Psychiatric Psychiatric: Absent: anxiety, depression - Endocrine Endocrine: Absent: cold intolerance, heat intolerance - Hematologic/Lymphatic Hematologic/Lymphatic: Absent: easy bleeding, easy bruising Medical,Surgical,& Family Hx - Medical History Cardio: History of: CAD, Hypertension, ID (x1 stent, on 08/03/14) Neurology: History of: Migraine, TIA No history of: Seizures HEENT: History of: Ear Problem (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) Endocrine: History of: Diabetes Mellitus (IDDM), Dyslipidemia Gastrointestinal: History of: GI Problems (gastroparesis, pancreatitis) Musculoskeletal: History of: Back/Neck Problems (degenerative joint disease of cervical spine) Hematology: History of: Blood Transfusion Reaction (ON CHART, BUT PT STATES NO HISTORY OF REACTION TO BLOOD TRANSFUSION) Other: History of: Anaphylaxis (BACTRIM AND CODIENE) - Surgical History Cardiac Surgeries: Sugical HX of: Femoral-Popliteal Bypass Graft (August 2011), Cardiac Catheterization, Cardiac Surgery (cabg 2011 double bypass) Abdominal Surgeries: Surgical HX of: Appendectomy, Cholecystectomy, Colonoscopy , EGD - Family History Family History: Reports;: Family Cancer, Family Diabetes (MOTHER, FATHER), Family Heart Disease (MOTHER, FATHER), Family Hypertension (MOTHER, FATHER), Family Stroke Denies;: Family Psychiatric Problems - Social History Smoking Status: Former smoker Frequency of Alcohol Use: None Type of Drug Use: None Marital Status: Lives With:: Spouse Functional capacity: independent ambulation Cardiology Physical Exam - Constitutional Vitals: Vital Signs Temp Pulse Resp BP Pulse Ox 97.7 F 82 19 122/80 96 03/01/17 04:00 03/01/17 04:00 03/01/17 04:06 03/01/17 04:00 03/01/17 04:00 Intake and Output 02/28/17 02/28/17 03/01/17 15:59 23:59 07:59 Other: Voiding Method Toilet # Voids 1 Weight 102.965 kg 100.017 kg Patient Weight 03/01/17 23:59 Weight 100.017 kg General appearance: over weight - Head Head exam: Present: normal inspection - Eye Eye exam: Present: EOMI Pupils: Present: VICTOR HUGO - ENT ENT exam: Present: normal exam - Neck Neck exam: Present: normal inspection - Respiratory Respiratory exam: Present: clear to auscultation bilaterally - Cardiovascular Cardiovascular exam: Present: regular rate and rhythm - GI/Abdominal GI/Abdominal exam: Present: normal bowel sounds - Extremities Exam Extremities exam: Present: normal inspection (good FA pulse on the right) - Back Exam Back exam: Present: normal inspection Result/EKG - Labs CBC & BMP: 03/01/17 00:48 03/01/17 00:48 Labs: Laboratory Results - last 24 hr 02/28/17 02/28/17 02/28/17 19:15 19:15 19:15 WBC RBC Hgb Hct MCV MCH MCHC RDW Plt Count MPV Neut % (Auto) Lymph % (Auto) [place] % (Auto) Eos % (Auto) Baso % (Auto) Neut # (Auto) Lymph # (Auto) [place] # (Auto) Eos # (Auto) Baso # (Auto) Immature Gran % Nucleated RBC % Immature Gran # Nucleated RBCs # Immature Plt Fraction INR 0.9 PT Patient/Control Mix 9.9 Sodium 136 Potassium 4.0 Chloride 104 Carbon Dioxide 23 Anion Gap 13.0 BUN 23 H Creatinine 1.00 GFR Calculation 109 BUN/Creatinine Ratio 23.00 H Glucose 347 H POC Glucose Calculated Osmolality 289.0 Calcium 8.6 Magnesium 2.0 Total Bilirubin < 0.39 AST 22 ALT 38 Alkaline Phosphatase 68 Troponin I B-Natriuretic Peptide 9 Total Protein 7.3 Albumin 3.5 Globulin 3.8 H Albumin/Globulin Ratio 0.9 L Triglycerides Cholesterol LDL Cholesterol VLDL Cholesterol HDL Cholesterol Heart Disease Risk Ratio Lipase 182.0 Free T4 TSH 3rd Generation 02/28/17 02/28/17 02/28/17 19:15 19:15 22:48 WBC 8.3 RBC 5.05 Hgb 15.3 Hct 44.5 MCV 88.1 MCH 30 MCHC 34.4 RDW 13.0 Plt Count 186 MPV 10.3 Neut % (Auto) 54.6 Lymph % (Auto) 28.5 [place] % (Auto) 9.1 Eos % (Auto) 6.4 Baso % (Auto) 0.8 Neut # (Auto) 4.6 Lymph # (Auto) 2.4 [place] # (Auto) 0.8 Eos # (Auto) 0.5 Baso # (Auto) 0.1 Immature Gran % 0.6 Nucleated RBC % 0.0 Immature Gran # 0.05 Nucleated RBCs # 0.00 Immature Plt Fraction 0.0 INR PT Patient/Control Mix Sodium Potassium Chloride Carbon Dioxide Anion Gap BUN Creatinine GFR Calculation BUN/Creatinine Ratio Glucose POC Glucose Calculated Osmolality Calcium Magnesium Total Bilirubin AST ALT Alkaline Phosphatase Troponin I < 0.015 < 0.015 B-Natriuretic Peptide Total Protein Albumin Globulin Albumin/Globulin Ratio Triglycerides Cholesterol LDL Cholesterol VLDL Cholesterol HDL Cholesterol Heart Disease Risk Ratio Lipase Free T4 TSH 3rd Generation 03/01/17 03/01/17 03/01/17 00:48 00:48 00:48 WBC 9.0 RBC 4.78 Hgb 14.3 Hct 42.2 MCV 88.3 MCH 30 MCHC 33.9 RDW 13.1 Plt Count 187 MPV 11.1 Neut % (Auto) 44.8 Lymph % (Auto) 36.1 [place] % (Auto) 10.6 Eos % (Auto) 7.0 Baso % (Auto) 0.8 Neut # (Auto) 4.0 Lymph # (Auto) 3.2 [place] # (Auto) 1.0 H Eos # (Auto) 0.6 Baso # (Auto) 0.1 Immature Gran % 0.7 Nucleated RBC % 0.0 Immature Gran # 0.06 Nucleated RBCs # 0.00 Immature Plt Fraction 0.0 INR PT Patient/Control Mix Sodium Potassium Chloride Carbon Dioxide Anion Gap BUN Creatinine GFR Calculation BUN/Creatinine Ratio Glucose POC Glucose Calculated Osmolality Calcium Magnesium Total Bilirubin AST ALT Alkaline Phosphatase Troponin I < 0.015 B-Natriuretic Peptide Total Protein Albumin Globulin Albumin/Globulin Ratio Triglycerides Cholesterol LDL Cholesterol VLDL Cholesterol HDL Cholesterol Heart Disease Risk Ratio Lipase Free T4 0.88 TSH 3rd Generation 03/01/17 03/01/17 03/01/17 00:48 00:48 01:04 WBC RBC Hgb Hct MCV MCH MCHC RDW Plt Count MPV Neut % (Auto) Lymph % (Auto) [place] % (Auto) Eos % (Auto) Baso % (Auto) Neut # (Auto) Lymph # (Auto) [place] # (Auto) Eos # (Auto) Baso # (Auto) Immature Gran % Nucleated RBC % Immature Gran # Nucleated RBCs # Immature Plt Fraction INR PT Patient/Control Mix Sodium 137 Potassium 3.9 Chloride 104 Carbon Dioxide 26 Anion Gap 10.9 BUN 20 H Creatinine 0.90 GFR Calculation 122 BUN/Creatinine Ratio 22.00 H Glucose 257 H POC Glucose 267 H Calculated Osmolality 284.8 Calcium 8.6 Magnesium 2.1 Total Bilirubin < 0.39 AST 18 ALT 34 Alkaline Phosphatase 62 Troponin I B-Natriuretic Peptide 8 Total Protein 6.6 Albumin 3.4 Globulin 3.2 Albumin/Globulin Ratio 1.0 L Triglycerides 624 H Cholesterol 164 LDL Cholesterol 82.0 VLDL Cholesterol 124.8 HDL Cholesterol 25 L Heart Disease Risk Ratio 6.56 Lipase Free T4 TSH 3rd Generation 1.330 - EKG EKG results: interpreted by me (non-specific st-t changes)
[2017-03-01] MEDS ORDERED: HEPARIN/NACL 0.9% 2 UNITS/ML 1,000 ML IV ONE (06:57)
[2017-03-01] MEDS ORDERED: LIDOCAINE 1% 20 ML VIAL ONE (06:57)
[2017-03-01] MEDS ORDERED: MIDAZOLAM 2 MG/2 ML VIAL ONE ×2 (07:20→07:33)
--- NOTE | 2017-03-01 07:20 | History and Physical Update ---
Sedation H&P Update - History and Physical H&P was reviewed, the patient examined and there: are no changes in the patients condition since last H&P was completed. - Dictation Physical: refer to H&P completed by admitting physician - Physical Exam Mental Status: alert and oriented Heart: regular rate and rhythm Lung: clear to auscultation Abdomen: within normal limits Vitals: within normal limits - Sedation Plan for Sedation: moderate Patient Consent: Procedure disscussed with patient and patinet has consented., Risks and benefits were discussed with patient,including infection,, bleeding, injury to surrounding structures, seizure, temporary nerve, Patient understands and accepts potential risks/benefits and agrees to, proceed. ASA Class: III Airway Assessment: Class III: Soft palate, base of uvula visible
[2017-03-01] MEDS ORDERED: fentaNYL 100 MCG/2 ML VIAL ONE (07:21)
--- NOTE | 2017-03-01 07:48 | XRay Report ---
Exam: XR chest 1V portable Date: 03/01/2017 4:00 AM Indication: Shortness of breath Comparison: 02/28/2017 Technical: AP Findings: Previous sternotomy. Prior cervical fusion. External cardiac leads are present. The mediastinum and bony structures are otherwise intact. No obvious consolidating infiltrates or effusions Impression: 1. No acute cardiopulmonary pathology 2. Previous sternotomy and prior cervical fusion PROCEDURE INTERPRETED AT [facility] DEPARTMENT OF RADIOLOGY Final Report Signed by: Dr. Baljinder Rice
--- NOTE | 2017-03-01 08:01 | Cardiac Catheterization ---
Date of Procedure:: 03/01/17 Pre-op Diagnosis: Chest pain and known coronary artery disease with a CT of and failed graft to the left circumflex system Post-op diagnosis: same (No significant change in angiography since 02/2015) Procedure: Procedure: 1. Selective left and right coronary angiography 2. Left heart catheterization resting hemodynamics 3. Left ventriculography 4. Selective SWANSON graft injection in-situ as a conduit to the distal left anterior descending artery 5. Right femoral iliac angiography 6. Closure right femoral arteriotomy with Mynx closure device After consent was taken from the patient. Taken to the catheterization lab for left heart catheterization via the femoral artery. Time out was taken and recorded. 1% lidocaine was infiltrated in the skin and subcutaneous tissue overlying the right femoral artery. Modified Seldinger technique and an 18- gauge [employer] needle was used for access to the right femoral artery. An 0.35 J- wire was advanced through the needle into the central aorta under fluoroscopy. A small skin was made and a 6 [place] Island[place] sheath was placed over the wire. The sheath was aspirated and flushed. A JL46 was advanced over the wires in the left main coronary artery was selectively engaged. Multiple orthogonal views of the left system were obtained. The catheter was then exchanged over the wire. The sheath was aspirated and flushed. A JR4 catheter was advanced over the wire into the central aorta. The right coronary was selectively engaged and orthogonal views of the right coronary artery were obtained. The catheter was then pulled back in the central aorta advanced into the left subclavian and the left internal mammary artery was selectively engaged in situ orthogonal views were obtained. The catheter was then exchanged over the wire, the sheath was aspirated and flushed. At this time an angled pigtail catheter was advanced across the aortic valve into the ventricle. Pressure measurements were obtained and a cine ventriculogram was performed in the STARKS projection with 10 mL of contrast. Pullback measurements were performed. The rotary drier operator reviewed the films. The sheath was aspirated and flushed and a right femoral and iliac angiography was performed. The access site was amenable for closure and the area was reprepped with ChloraPrep and draped with sterile towels. The Mynx closure device was used in standard technique. There was no hematoma and distal pulses were good. Total diagnostic fluoroscopy time 4.1 minutes total diagnostic fluoroscopy dose 266 mGy Total contrast exposure 90 cc of Omnipaque FINDINGS: LV: 106/4 LVEDP: 14 Ao:101/75 EF: 60% but was done during a VPC. LM: Left main is a long vessel there is approximately 20% proximal stenosis in the body of the graft. LAD: Left anterior descending artery is a large vessel. There is mid stenosis of approximately 40% the distal vessels filled with competitive flow from the RADHA in situ to the distal LAD. There is a moderate sized first diagonal that has a very eccentric stenosis of up to 80%. He is this is angiographically similar or possibly even better than it was in the 2015 left heart cath film. LCx: Left circumflex is 100% occluded in the proximal segment the obtuse marginals feel with collaterals from the right. The collaterals are mature and well formed RCA: Right coronary artery is a dominant vessel is large PDA and posterolateral branch has tandem 40% lesions in the proximal and mid segment. It supplies collaterals to the distribution of the left circumflex obtuse marginals. SWANSON to LAD: This is a widely patent mature graft there is no stenosis visualized in the body of the RADHA or the distal portion of the LAD RFA/ELIS: The right femoral iliac arteries are angiographically normal access is that a small branch that has limited flow. Therefore Angio-Seal was not used but minx was used to close this. Assessment: 1. 100% occluded left circumflex and failed graft to this distribution unchanged from 2015 2. Normal resting hemodynamics 3. Preserved cardiac ejection fraction 4. High-grade first diagonal disease. 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 100% occluded graft to the circumflex) previously documented and not injected today 6. Widely patent SWANSON to the LAD PLAN: 1. Escalate medical therapy 2. Therapy lifestyle changes including weight loss and exercise program. Control of blood pressure diabetes and dyslipidemia. Implants: Mynx closure device Anesthesia: moderate conscious sedation Surgeon / Physician: Rashida Desai Furniture Sales Consultant: none Estimated blood loss: none Specimens: none sent Condition: stable Disposition: floor - Discharge Disposition: Disch To Home/Self Care Condition at Discharge: Stable Discharge Diet: diabetic diet Activity: resume usual activities as tolerated, increase activity as tolerated Hygiene: no restrictions Weight Bearing at Discharge: full weight bearing Driving: not for (24 hours) Contact your physician if you experience:: fever over 101, Difficulty voiding, Redness or swelling, Nausea/Vomiting, Shortness of breath, Bleeding, pain uncontrolled by pain medications - Medications / Follow-up Referrals: Marcelo Gresham MD [Physician] - 1 Week (ECG and Chem 7 and CBC)
[2017-03-01] MEDS: INSULIN REGULAR 100 UNIT/ML SUBCUT SCH ×2 (08:58→13:08)
[2017-03-01] MEDS ORDERED: ENOXAPARIN 100 MG/ML SYRINGE SUBCUT SCH (09:00)
[2017-03-01] MEDS ORDERED: RANOLAZINE 500 MG TABLET PO SCH (09:00)
[2017-03-01] MEDS ORDERED: MAGNESIUM CHLORIDE 64 MG TABLET PO SCH (09:00)
[2017-03-01] MEDS ORDERED: ASPIRIN EC 325 MG TABLET PO SCH (09:00)
[2017-03-01] MEDS ORDERED: OMEGA 3 ACID ETHYL ESTERS 1 GM CAPSULE PO SCH (09:00)
[2017-03-01] MEDS ORDERED: GABAPENTIN 600 MG TABLET PO SCH ×2 (09:00→21:00)
[2017-03-01] MEDS ORDERED: NON-FORMULARY MEDICATION (Canagliflozin [Invokana] 100 MG) PO SCH (09:00)
[2017-03-01] MEDS ORDERED: TOPIRAMATE 100 MG TABLET PO SCH ×2 (09:00→21:00)
[2017-03-01] MEDS ORDERED: PANTOPRAZOLE 40 MG TABLET PO SCH (09:00)
[2017-03-01] MEDS ORDERED: ASPIRIN EC 81 MG TABLET PO SCH (09:00)
[2017-03-01] MEDS ORDERED: NON-FORMULARY MEDICATION (Liraglutide [Victoza 2-Pak] 1.2 MG) SUBCUT SCH (09:00)
[2017-03-01 13:37] VITALS: BP 131/64
[2017-03-01] MEDS ORDERED: LISINOPRIL 2.5 MG TABLET PO SCH (21:00)
[2017-03-01] MEDS ORDERED: ATORVASTATIN 20 MG TABLET PO SCH (21:00)
[2017-03-01] MEDS ORDERED: METOPROLOL SUCCINATE XL 25 MG TABLET PO SCH (21:00)
[2017-03-01] MEDS ORDERED: amLODIPine 2.5 MG TABLET PO SCH (21:00)
[2017-03-02] MEDS ORDERED: ENOXAPARIN 40 MG/0.4 ML SYRINGE SUBCUT SCH (01:51)
== END 2017-03-01 14:45 | disposition home or self-care (01) ==
LOC: N.ED 18:39 → INTOOBSV 21:28 → N.EDINP 21:28 → N.TELES 21:43
PROVIDERS: ADMIT Internal Medicine Cardiovascular Disease; ATTEND Internal Medicine Cardiovascular Disease

== ENCOUNTER 2017-11-26 13:16 | Inpatient (IN) ==
[2017-11-26] MEDS ORDERED: VANCOMYCIN INJ 1,500 MG in SODIUM CHLORIDE 0.9% 500 ML IV STA (13:39)
[2017-11-26 14:27] LABS: Basophils % 0.4 % (0.0-0.8); Eosinophils # 0.3 10*3/uL (0.0-0.87); Eosinophils % 2.9 % (0.00-10.9); Hemoglobin 13.9 GM/DL (14.0-18.0); Immature Granulocytes % 0.6 %; Immature Granulocytes Absolute 0.07 #; Lymphocytes # 2.5 10*3/uL (1.4-4.0); Lymphocytes % 23.1 % (21.2-54.2); Mean Corpuscular HGB Conc 33.1 GM/DL (32-36); Mean Corpuscular Hemoglobin 30 PG (27-34); Mean Corpuscular Volume 90.5 FL (87-102); Mean Platelet Volume 10.6 FL (9.6-12.0); Monocytes # 1.1 10*3/uL (0.11-0.8); Monocytes % 10.2 % (1.7-12.7); Neutrophils # 6.8 10*3/uL (1.4-7.4); Neutrophils % 62.8 % (38.7-73.9); Platelet Count 186 T/CUMM (130-400); Red Blood Count 4.64 MC/CUMM (3.8-5.5); Red Cell Distribution Width 12.7 % (9.3-17.3); White Blood Count 10.9 T/CUMM (4-12)
[2017-11-26] MEDS ORDERED: guaiFENesin/DM ER 600-30 MG TABLET PO PRN (14:31)
[2017-11-26] MEDS ORDERED: DEXTROSE 50% 25 GM/50 ML VIAL IV PRN (14:31)
[2017-11-26] MEDS ORDERED: ONDANSETRON 4 MG/2 ML VIAL IV PRN (14:31)
[2017-11-26] MEDS ORDERED: DOCUSATE SODIUM 100 MG CAPSULE PO PRN (14:31)
[2017-11-26] MEDS ORDERED: GLUCAGON 1 MG VIAL IM PRN (14:31)
[2017-11-26] MEDS ORDERED: diphenhydrAMINE CAP 25 MG CAPSULE PO PRN (14:31)
[2017-11-26] MEDS ORDERED: ACETAMINOPHEN 325 MG TABLET PO PRN (14:31)
[2017-11-26 14:38] LABS: PT Patient Result 10.1 SECS; Partial Thromboplastin Time 26.1 SECS (0-40)
[2017-11-26 14:46] LABS: Alanine Aminotransferase 33 U/L (16-61); Alkaline Phosphatase 87 U/L (45-117); Aspartate Amino Transferase 21 U/L (0-37); Bilirubin,Total < 0.39 MG/DL (0.2-1.0); Blood Urea Nitrogen 19 MG/DL (7-18); Calcium 9.2 MG/DL (8.5-10.1); Glucose 311 MG/DL (74-106); Lactic Acid 1.5 MMOL/L (0.4-2.0); Osmolality,Calculated 286.8 MOS/KG (273-304); Sodium 137 MMOL/L (136-145); Total Protein 7.7 G/DL (6.4-8.3)
[2017-11-26 15:21] LABS: Apearance,Urine CLEAR (Clear); Bilirubin,Urine Negative (Negative); Blood, Urine Negative (Negative); Glucose,Urine (UA) >=500 mg/dL (Negative); Ketones,Urine Negative (Negative); Nitrite,Urine Negative (Negative); Protein,Urine Negative; RBC,Urine 2 /HPF (0-4); Urine Color Yellow (Yellow); Urine Urobilinogen < 2.0 EU/DL (0.2-1.0); WBC,Urine 4 /HPF (0-6)
[2017-11-26] MEDS: SODIUM CHLORIDE 0.9% 1,000 ML IV SCH (16:02)
[2017-11-26] MEDS: PANTOPRAZOLE 40 MG TABLET PO SCH (16:03)
[2017-11-26] MEDS: MORPHINE 4 MG/1 ML VIAL IV PRN ×2 (16:28→20:17)
[2017-11-26] MEDS: VANCOMYCIN INJ 1,500 MG in SODIUM CHLORIDE 0.9% 500 ML IV SCH (17:24)
[2017-11-26] MEDS ORDERED: tiZANidine 4 MG TABLET PO PRN (17:34)
[2017-11-26] MEDS ORDERED: NITROGLYCERIN SL 0.4 MG TABLET SL PRN (17:34)
[2017-11-26] MEDS ORDERED: PROMETHAZINE 25 MG TABLET PO PRN (17:34)
[2017-11-26] MEDS: INSULIN LISPRO 100 UNIT/ML SUBCUT SCH (17:57)
[2017-11-26] MEDS ORDERED: ATORVASTATIN 20 MG TABLET PO SCH (18:00)
[2017-11-26] MEDS: TOPIRAMATE 100 MG TABLET PO SCH (20:19)
[2017-11-26] MEDS: ASPIRIN EC 325 MG TABLET PO SCH (20:19)
[2017-11-26] MEDS: FAMOTIDINE 20 MG TABLET PO SCH (20:19)
[2017-11-26] MEDS: amLODIPine 2.5 MG TABLET PO SCH (20:19)
[2017-11-26] MEDS: GABAPENTIN 600 MG TABLET PO SCH (20:19)
[2017-11-26] MEDS: LISINOPRIL 2.5 MG TABLET PO SCH (20:19)
[2017-11-26] MEDS: METOPROLOL SUCCINATE XL 25 MG TABLET PO SCH (20:19)
[2017-11-26] MEDS: RANOLAZINE 500 MG TABLET PO SCH (20:19)
[2017-11-26] MEDS: INSULIN ASPART PROTAMINE/ASPART 70/30 100 UNIT/ML SUBCUT SCH (21:30)
[2017-11-27] MEDS: MORPHINE 4 MG/1 ML VIAL IV PRN ×2 (03:48→15:07)
[2017-11-27] MEDS: SODIUM CHLORIDE 0.9% 1,000 ML IV SCH ×2 (03:48→12:16)
[2017-11-27] MEDS: VANCOMYCIN INJ 1,500 MG in SODIUM CHLORIDE 0.9% 500 ML IV SCH ×2 (06:17→17:24)
[2017-11-27 07:01] LABS: Basophils # 0.1 10*3/uL (0.0-0.2); Basophils % 0.6 % (0.0-0.8); Eosinophils # 0.4 10*3/uL (0.0-0.87); Eosinophils % 5.4 % (0.00-10.9); Hematocrit 39.4 VOL% (42.0-52.0); Hemoglobin 12.9 GM/DL (14.0-18.0); Immature Granulocytes % 1.1 %; Immature Granulocytes Absolute 0.09 #; Lymphocytes # 2.9 10*3/uL (1.4-4.0); Lymphocytes % 35.8 % (21.2-54.2); Mean Corpuscular HGB Conc 32.7 GM/DL (32-36); Mean Corpuscular Hemoglobin 30 PG (27-34); Mean Corpuscular Volume 92.5 FL (87-102); Mean Platelet Volume 11.3 FL (9.6-12.0); Monocytes # 0.9 10*3/uL (0.11-0.8); Monocytes % 11.4 % (1.7-12.7); Neutrophils # 3.8 10*3/uL (1.4-7.4); Neutrophils % 45.7 % (38.7-73.9); Platelet Count 192 T/CUMM (130-400); Red Blood Count 4.26 MC/CUMM (3.8-5.5); Red Cell Distribution Width 12.9 % (9.3-17.3); White Blood Count 8.2 T/CUMM (4-12)
[2017-11-27 07:16] LABS: Calcium 8.1 MG/DL (8.5-10.1); Osmolality,Calculated 289.3 MOS/KG (273-304); Potassium 3.9 MMOL/L (3.5-5.1)
[2017-11-27 07:17] LABS: Risk Ratio 4.82
[2017-11-27] MEDS: INSULIN ASPART PROTAMINE/ASPART 70/30 100 UNIT/ML SUBCUT SCH ×2 (08:51→21:17)
[2017-11-27] MEDS: MAGNESIUM CHLORIDE 64 MG TABLET PO SCH (08:52)
[2017-11-27] MEDS: RANOLAZINE 500 MG TABLET PO SCH ×2 (08:52→21:15)
[2017-11-27] MEDS: PANTOPRAZOLE 40 MG TABLET PO SCH (08:52)
[2017-11-27] MEDS: GABAPENTIN 600 MG TABLET PO SCH ×2 (08:52→21:14)
[2017-11-27] MEDS: INSULIN LISPRO 100 UNIT/ML SUBCUT SCH ×2 (08:52→17:23)
[2017-11-27] MEDS: MELOXICAM 7.5 MG TABLET PO SCH (08:52)
[2017-11-27] MEDS: TOPIRAMATE 100 MG TABLET PO SCH ×2 (08:53→21:12)
[2017-11-27] MEDS ORDERED: SUGAMMADEX 200 MG/2 ML VIAL IV ONE (11:01)
[2017-11-27] MEDS ORDERED: PROPOFOL 200 MG/20 ML VIAL IV ONE (11:26)
[2017-11-27] MEDS ORDERED: SEVOFLURANE 1 UNIT/15 MINUTE INH ONE (11:26)
[2017-11-27] MEDS ORDERED: fentaNYL 100 MCG/2 ML VIAL ONE (11:27)
[2017-11-27] MEDS ORDERED: DEXAMETHASONE 10 MG/1 ML VIAL ONE (11:27)
[2017-11-27] MEDS ORDERED: MIDAZOLAM 2 MG/2 ML VIAL ONE (11:27)
[2017-11-27] MEDS ORDERED: NEOSTIGMINE 10 MG/10 ML VIAL ONE (11:28)
[2017-11-27] MEDS ORDERED: GLYCOPYRROLATE 0.4 MG/2 ML VIAL ONE (11:28)
[2017-11-27] MEDS ORDERED: ROCURONIUM 100 MG/10 ML VIAL IV ONE (11:28)
[2017-11-27] MEDS ORDERED: GLUCAGON 1 MG VIAL IM PRN (13:05)
[2017-11-27] MEDS ORDERED: DEXTROSE 50% 25 GM/50 ML VIAL IV PRN (13:05)
[2017-11-27] MEDS: amLODIPine 2.5 MG TABLET PO SCH (21:13)
[2017-11-27] MEDS: METOPROLOL SUCCINATE XL 25 MG TABLET PO SCH (21:13)
[2017-11-27] MEDS: LISINOPRIL 2.5 MG TABLET PO SCH (21:14)
[2017-11-27] MEDS: ASPIRIN EC 325 MG TABLET PO SCH (21:14)
[2017-11-27] MEDS: FAMOTIDINE 20 MG TABLET PO SCH (21:14)
[2017-11-28] MEDS: MORPHINE 4 MG/1 ML VIAL IV PRN (00:25)
[2017-11-28] MEDS: SODIUM CHLORIDE 0.9% 1,000 ML IV SCH ×2 (00:29→10:35)
[2017-11-28 06:32] LABS: Basophils % 0.2 % (0.0-0.8); Hematocrit 38.4 VOL% (42.0-52.0); Hemoglobin 12.7 GM/DL (14.0-18.0); Immature Granulocytes % 1.2 %; Immature Granulocytes Absolute 0.13 #; Lymphocytes # 1.1 10*3/uL (1.4-4.0); Lymphocytes % 10.1 % (21.2-54.2); Mean Corpuscular HGB Conc 33.1 GM/DL (32-36); Mean Corpuscular Hemoglobin 30 PG (27-34); Mean Corpuscular Volume 89.9 FL (87-102); Mean Platelet Volume 10.5 FL (9.6-12.0); Monocytes # 0.5 10*3/uL (0.11-0.8); Monocytes % 4.4 % (1.7-12.7); Neutrophils # 9.4 10*3/uL (1.4-7.4); Neutrophils % 84.1 % (38.7-73.9); Platelet Count 212 T/CUMM (130-400); Red Blood Count 4.27 MC/CUMM (3.8-5.5); Red Cell Distribution Width 12.3 % (9.3-17.3); White Blood Count 11.2 T/CUMM (4-12)
[2017-11-28] MEDS: VANCOMYCIN INJ 1,500 MG in SODIUM CHLORIDE 0.9% 500 ML IV SCH (06:40)
[2017-11-28 07:05] LABS: Calcium 8.7 MG/DL (8.5-10.1); Osmolality,Calculated 294.3 MOS/KG (273-304); Potassium 4.1 MMOL/L (3.5-5.1)
[2017-11-28] MEDS: INSULIN LISPRO 100 UNIT/ML SUBCUT SCH (08:38)
[2017-11-28] MEDS: INSULIN ASPART PROTAMINE/ASPART 70/30 100 UNIT/ML SUBCUT SCH (08:38)
[2017-11-28] MEDS: MAGNESIUM CHLORIDE 64 MG TABLET PO SCH (08:39)
[2017-11-28] MEDS: RANOLAZINE 500 MG TABLET PO SCH (08:39)
[2017-11-28] MEDS: PANTOPRAZOLE 40 MG TABLET PO SCH (08:39)
[2017-11-28] MEDS: GABAPENTIN 600 MG TABLET PO SCH (08:39)
[2017-11-28] MEDS: TOPIRAMATE 100 MG TABLET PO SCH (08:39)
[2017-11-28] MEDS: MELOXICAM 7.5 MG TABLET PO SCH (08:40)
[2017-11-28 11:44] VITALS: BP 120/70
== END 2017-11-28 13:18 | disposition home or self-care (01) | DRG 572 ==
LOC: N.ED 13:16 → N.EDINP 14:31 → N.2E 15:04
PROVIDERS: ADMIT Internal Medicine; ATTEND Internal Medicine

== ENCOUNTER 2018-11-29 11:00 | Inpatient (IN) ==
[2018-11-29] MEDS ORDERED: ASPIRIN 325 MG TABLET PO STA (11:23)
[2018-11-29] MEDS ORDERED: ENOXAPARIN 100 MG/ML SYRINGE SUBCUT STA (11:23)
[2018-11-29] MEDS ORDERED: NITROGLYCERIN SL 0.4 MG TABLET SL ONE (11:26)
[2018-11-29] MEDS: NITROGLYCERIN SL 0.4 MG TABLET SL PRN ×2 (11:30→11:50)
[2018-11-29 12:28] LABS: Basophils # 0.1 10*3/uL (0.0-0.2); Basophils % 0.9 % (0.0-0.8); Eosinophils # 0.3 10*3/uL (0.0-0.87); Eosinophils % 4.1 % (0.00-10.9); Hematocrit 43.7 VOL% (42.0-52.0); Hemoglobin 14.6 GM/DL (14.0-18.0); Immature Granulocytes % 0.9 %; Immature Granulocytes Absolute 0.06 #; Lymphocytes # 2.1 10*3/uL (1.4-4.0); Lymphocytes % 30.9 % (21.2-54.2); Mean Corpuscular HGB Conc 33.4 GM/DL (32-36); Mean Corpuscular Volume 90.5 FL (87-102); Mean Platelet Volume 10.9 FL (9.6-12.0); Monocytes % 9.2 % (1.7-12.7); Platelet Count 172 T/CUMM (130-400); Red Blood Count 4.83 MC/CUMM (3.8-5.5); Red Cell Distribution Width 12.7 % (9.3-17.3); White Blood Count 6.6 T/CUMM (4-12)
[2018-11-29 12:41] LABS: INR 0.9
[2018-11-29 12:58] LABS: Osmolality,Calculated 290.7 MOS/KG (273-304)
[2018-11-29] MEDS ORDERED: MAGNESIUM SULF RIDER 2 GM in PREMIX 1 EACH IV PRN (13:10)
[2018-11-29] MEDS ORDERED: POTASSIUM CHLORIDE 20 MEQ TABLET PO PRN (13:10)
[2018-11-29] MEDS ORDERED: MAGNESIUM SULF RIDER 4 GM in PREMIX 1 EACH IV PRN (13:10)
[2018-11-29] MEDS ORDERED: GLUCAGON 1 MG VIAL IM PRN (13:10)
[2018-11-29] MEDS ORDERED: DEXTROSE 10% 25 GM/250 ML BAG IV PRN (13:10)
[2018-11-29] MEDS ORDERED: SODIUM CHLORIDE 0.45% 1,000 ML IV SCH (13:30)
[2018-11-29] MEDS: ONDANSETRON 4 MG/2 ML VIAL IV PRN (14:44)
[2018-11-29] MEDS: MORPHINE 4 MG/1 ML VIAL IV PRN (14:52)
[2018-11-29] MEDS ORDERED: ALBUTEROL 2.5 MG/3 ML NEB RESP TX PRN (15:21)
[2018-11-29] MEDS ORDERED: tiZANidine 4 MG TABLET PO PRN (15:21)
[2018-11-29] MEDS ORDERED: NITROGLYCERIN SL 0.4 MG TABLET SL PRN (15:21)
[2018-11-29] MEDS ORDERED: PROMETHAZINE 25 MG TABLET PO PRN (15:21)
[2018-11-29] MEDS ORDERED: MAGNESIUM CHLORIDE 64 MG TABLET PO SCH (15:30)
[2018-11-29] MEDS: INSULIN NPH 100 UNIT/ML SUBCUT SCH (15:41)
[2018-11-29] MEDS: INSULIN LISPRO 100 UNIT/ML SUBCUT SCH ×2 (15:42→22:09)
[2018-11-29] MEDS ORDERED: ZALEPLON 5 MG CAPSULE PO PRN (15:43)
[2018-11-29] MEDS ORDERED: DOCUSATE SODIUM 100 MG CAPSULE PO PRN (15:43)
[2018-11-29] MEDS: ISOSORBIDE MONONITRATE 30 MG TABLET PO SCH (17:38)
[2018-11-29] MEDS ORDERED: METOPROLOL SUCCINATE XL 25 MG TABLET PO SCH (21:00)
[2018-11-29] MEDS ORDERED: ASPIRIN EC 325 MG TABLET PO SCH (21:00)
[2018-11-29] MEDS: FAMOTIDINE 20 MG TABLET PO SCH (21:48)
[2018-11-29] MEDS: RANOLAZINE 500 MG TABLET PO SCH (21:48)
[2018-11-29] MEDS: GABAPENTIN 600 MG TABLET PO SCH (21:48)
[2018-11-29] MEDS: TOPIRAMATE 100 MG TABLET PO SCH (21:49)
[2018-11-29] MEDS: amLODIPine 2.5 MG TABLET PO SCH (21:49)
[2018-11-29] MEDS: LISINOPRIL 2.5 MG TABLET PO SCH (21:49)
[2018-11-29] MEDS: ENOXAPARIN 120 MG/0.8 ML SYRINGE SUBCUT SCH (21:52)
[2018-11-29] MEDS: INSULIN ASPART PROTAMINE/ASPART 70/30 100 UNIT/ML SUBCUT SCH (22:09)
[2018-11-29 23:10] LABS: Apearance,Urine CLEAR (Clear); Bilirubin,Urine Negative (Negative); Blood, Urine Negative (Negative); Glucose,Urine (UA) >=500 mg/dL (Negative); Ketones,Urine Negative (Negative); Nitrite,Urine Negative (Negative); Protein,Urine Negative; RBC,Urine 1 /HPF (0-4); Urine Color Yellow (Yellow); Urine Specific Gravity 1.029 (1.001-1.035); Urine Urobilinogen < 2.0 EU/DL (0.2-1.0); WBC,Urine <1 /HPF (0-6)
[2018-11-30] MEDS: MORPHINE 4 MG/1 ML VIAL IV PRN ×2 (01:47→08:26)
[2018-11-30] MEDS: ONDANSETRON 4 MG/2 ML VIAL IV PRN (01:47)
[2018-11-30 05:03] LABS: Basophils # 0.1 10*3/uL (0.0-0.2); Basophils % 0.7 % (0.0-0.8); Eosinophils # 0.3 10*3/uL (0.0-0.87); Eosinophils % 3.8 % (0.00-10.9); Hematocrit 40.8 VOL% (42.0-52.0); Hemoglobin 13.9 GM/DL (14.0-18.0); Immature Granulocytes Absolute 0.08 #; Lymphocytes # 3.3 10*3/uL (1.4-4.0); Lymphocytes % 43.5 % (21.2-54.2); Mean Corpuscular HGB Conc 34.1 GM/DL (32-36); Mean Corpuscular Volume 90.9 FL (87-102); Mean Platelet Volume 11.3 FL (9.6-12.0); Monocytes % 9.8 % (1.7-12.7); Neutrophils % 41.2 % (38.7-73.9); Platelet Count 159 T/CUMM (130-400); Red Blood Count 4.49 MC/CUMM (3.8-5.5); Red Cell Distribution Width 12.9 % (9.3-17.3); White Blood Count 7.7 T/CUMM (4-12)
[2018-11-30 05:39] LABS: Calcium 7.9 MG/DL (8.5-10.1); Osmolality,Calculated 291.4 MOS/KG (273-304); Risk Ratio 9.32; VLDL CHOLESTEROL 253.4 MG/DL
[2018-11-30] MEDS: MELOXICAM 7.5 MG TABLET PO SCH (08:22)
[2018-11-30] MEDS: ASPIRIN EC 325 MG TABLET PO SCH (08:23)
[2018-11-30] MEDS: RANOLAZINE 500 MG TABLET PO SCH ×2 (08:23→21:30)
[2018-11-30] MEDS: PANTOPRAZOLE 40 MG TABLET PO SCH (08:23)
[2018-11-30] MEDS: ISOSORBIDE MONONITRATE 30 MG TABLET PO SCH (08:23)
[2018-11-30] MEDS: GABAPENTIN 600 MG TABLET PO SCH ×2 (08:23→21:31)
[2018-11-30] MEDS: INSULIN NPH 100 UNIT/ML SUBCUT SCH (08:25)
[2018-11-30] MEDS: INSULIN ASPART PROTAMINE/ASPART 70/30 100 UNIT/ML SUBCUT SCH ×2 (08:25→21:44)
[2018-11-30] MEDS: ENOXAPARIN 120 MG/0.8 ML SYRINGE SUBCUT SCH (08:26)
[2018-11-30] MEDS: INSULIN LISPRO 100 UNIT/ML SUBCUT SCH ×4 (08:43→21:44)
[2018-11-30] MEDS: OMEGA 3 ACID ETHYL ESTERS 1 GM CAPSULE PO SCH (08:44)
[2018-11-30] MEDS: TOPIRAMATE 100 MG TABLET PO SCH ×2 (08:44→21:30)
[2018-11-30] MEDS ORDERED: Liraglutide [Victoza 2-Pak] 1.2 MG SUBCUT SCH (09:00)
[2018-11-30] MEDS: METOPROLOL SUCCINATE XL 25 MG TABLET PO SCH ×2 (13:47→21:32)
[2018-11-30] MEDS: FAMOTIDINE 20 MG TABLET PO SCH (21:31)
[2018-11-30] MEDS: LISINOPRIL 2.5 MG TABLET PO SCH (21:32)
[2018-11-30] MEDS: amLODIPine 2.5 MG TABLET PO SCH (21:32)
[2018-12-01] MEDS: MORPHINE 4 MG/1 ML VIAL IV PRN ×3 (04:27→18:12)
[2018-12-01] MEDS: ONDANSETRON 4 MG/2 ML VIAL IV PRN (04:27)
[2018-12-01] MEDS ORDERED: METHOCARBAMOL 750 MG TABLET PO PRN (07:54)
[2018-12-01] MEDS: INSULIN ASPART PROTAMINE/ASPART 70/30 100 UNIT/ML SUBCUT SCH (08:58)
[2018-12-01] MEDS: INSULIN LISPRO 100 UNIT/ML SUBCUT SCH ×4 (08:58→22:20)
[2018-12-01] MEDS: metFORMIN 850 MG TABLET PO SCH ×2 (08:59→18:12)
[2018-12-01] MEDS: MELOXICAM 7.5 MG TABLET PO SCH (08:59)
[2018-12-01] MEDS: ASPIRIN EC 325 MG TABLET PO SCH (08:59)
[2018-12-01] MEDS: GABAPENTIN 600 MG TABLET PO SCH ×2 (08:59→22:07)
[2018-12-01] MEDS: METOPROLOL SUCCINATE XL 25 MG TABLET PO SCH ×2 (08:59→22:08)
[2018-12-01] MEDS: PANTOPRAZOLE 40 MG TABLET PO SCH (09:00)
[2018-12-01] MEDS: sitaGLIPtin 25 MG TABLET PO SCH (09:00)
[2018-12-01] MEDS: RANOLAZINE 500 MG TABLET PO SCH ×2 (09:00→22:07)
[2018-12-01] MEDS ORDERED: ENOXAPARIN 30 MG/0.3 ML SYRINGE SUBCUT SCH (09:00)
[2018-12-01] MEDS: OMEGA 3 ACID ETHYL ESTERS 1 GM CAPSULE PO SCH (09:00)
[2018-12-01] MEDS: TOPIRAMATE 100 MG TABLET PO SCH ×2 (10:52→22:07)
[2018-12-01] MEDS: ISOSORBIDE MONONITRATE 60 MG TABLET PO SCH (10:52)
[2018-12-01] MEDS ORDERED: INSULIN ASPART PROTAMINE/ASPART 70/30 100 UNIT/ML SUBCUT SCH ×2 (11:17)
[2018-12-01] MEDS ORDERED: ATORVASTATIN 20 MG TABLET PO SCH (13:15)
[2018-12-01] MEDS: GEMFIBROZIL 600 MG TABLET PO SCH (18:12)
[2018-12-01] MEDS: amLODIPine 2.5 MG TABLET PO SCH (22:08)
[2018-12-01] MEDS: LISINOPRIL 2.5 MG TABLET PO SCH (22:08)
[2018-12-01] MEDS: FAMOTIDINE 20 MG TABLET PO SCH (22:08)
[2018-12-02] MEDS: metFORMIN 850 MG TABLET PO SCH (08:08)
[2018-12-02] MEDS: GEMFIBROZIL 600 MG TABLET PO SCH (08:08)
[2018-12-02] MEDS: sitaGLIPtin 25 MG TABLET PO SCH (08:09)
[2018-12-02] MEDS: ASPIRIN EC 325 MG TABLET PO SCH (08:09)
[2018-12-02] MEDS: OMEGA 3 ACID ETHYL ESTERS 1 GM CAPSULE PO SCH (08:09)
[2018-12-02] MEDS: MELOXICAM 7.5 MG TABLET PO SCH (08:09)
[2018-12-02] MEDS: RANOLAZINE 500 MG TABLET PO SCH (08:09)
[2018-12-02] MEDS: GABAPENTIN 600 MG TABLET PO SCH (08:09)
[2018-12-02] MEDS: PANTOPRAZOLE 40 MG TABLET PO SCH (08:09)
[2018-12-02] MEDS: TOPIRAMATE 100 MG TABLET PO SCH (08:10)
[2018-12-02] MEDS: METOPROLOL SUCCINATE XL 25 MG TABLET PO SCH (08:24)
[2018-12-02] MEDS: ISOSORBIDE MONONITRATE 60 MG TABLET PO SCH (08:24)
[2018-12-02] MEDS: INSULIN LISPRO 100 UNIT/ML SUBCUT SCH ×2 (08:25→13:06)
[2018-12-02] MEDS ORDERED: methylPREDNISolone ACETATE 80 MG/1 ML VIAL ONE (09:40)
[2018-12-02] MEDS ORDERED: TRIAMCINOLONE ACETONIDE 40 MG/1 ML VIAL ONE (09:40)
[2018-12-02] MEDS ORDERED: DEXAMETHASONE 10 MG/1 ML VIAL ONE (09:40)
[2018-12-02] MEDS ORDERED: MIDAZOLAM 2 MG/2 ML VIAL ONE (10:25)
[2018-12-02] MEDS ORDERED: fentaNYL 100 MCG/2 ML VIAL ONE (10:25)
[2018-12-02] MEDS ORDERED: PROPOFOL 200 MG/20 ML VIAL IV ONE (10:25)
[2018-12-02 11:35] VITALS: BP 99/70
== END 2018-12-02 15:11 | disposition home or self-care (01) | DRG 313 ==
LOC: N.EDINP 11:00 → N.ED 11:00 → N.TELEN 14:28
PROVIDERS: ADMIT Internal Medicine Clinical Cardiac Electrophysiology; ATTEND Internal Medicine Clinical Cardiac Electrophysiology

== ENCOUNTER 2019-05-03 16:20 | Inpatient (IN) ==
[2019-05-03] MEDS ORDERED: METOCLOPRAMIDE 10 MG/2 ML VIAL IV STA (17:04)
[2019-05-03] MEDS ORDERED: PANTOPRAZOLE 40 MG VIAL IV STA (17:04)
[2019-05-03] MEDS ORDERED: ONDANSETRON 4 MG/2 ML VIAL IV STA (17:04)
[2019-05-03] MEDS ORDERED: SODIUM CHLORIDE 0.9% 500 ML IV STA (17:04)
[2019-05-03 17:12] LABS: Basophils # 0.1 10*3/uL (0.0-0.2); Basophils % 0.7 % (0.0-0.8); Eosinophils # 0.3 10*3/uL (0.0-0.87); Eosinophils % 3.3 % (0.00-10.9); Hematocrit 45.9 VOL% (42.0-52.0); Immature Granulocytes % 0.6 %; Immature Granulocytes Absolute 0.05 #; Lymphocytes # 1.8 10*3/uL (1.4-4.0); Lymphocytes % 21.6 % (21.2-54.2); Mean Corpuscular HGB Conc 32.7 GM/DL (32-36); Mean Corpuscular Volume 92.4 FL (87-102); Mean Platelet Volume 10.2 FL (9.6-12.0); Monocytes % 8.2 % (1.7-12.7); Neutrophils % 65.6 % (38.7-73.9); Platelet Count 230 T/CUMM (130-400); Red Blood Count 4.97 MC/CUMM (3.8-5.5); Red Cell Distribution Width 12.9 % (9.3-17.3); White Blood Count 8.4 T/CUMM (4-12)
[2019-05-03 17:18] LABS: INR 0.9; PT Patient Result 9.7 SECS (9.6-12.2); Partial Thromboplastin Time 25.7 SECS (20.8-36.0)
[2019-05-03 17:27] LABS: Alanine Aminotransferase 80 U/L (16-61); Albumin 3.6 G/DL (3.4-5.0); Alkaline Phosphatase 79 U/L (45-117); Aspartate Amino Transferase 35 U/L (0-37); Bilirubin,Total < 0.39 MG/DL (0.2-1.0); Blood Urea Nitrogen 23 MG/DL (7-18); Calcium 9.2 MG/DL (8.5-10.1); Estimated Glom Filtration Rate 87 ML/MIN; Glucose 364 MG/DL (74-106); Osmolality,Calculated 291.8 MOS/KG (273-304); Total Protein 7.4 G/DL (6.4-8.3); Troponin I < 0.015 NG/ML (0.00-0.045)
[2019-05-03 17:43] LABS: Apearance,Urine CLEAR (Clear); Bilirubin,Urine Negative (Negative); Blood, Urine Negative (Negative); Glucose,Urine (UA) >=500 mg/dL (Negative); Ketones,Urine Negative (Negative); Nitrite,Urine Negative (Negative); Protein,Urine Negative; RBC,Urine 1 /HPF (0-4); Urine Color Straw (Yellow); Urine Specific Gravity 1.024 (1.001-1.035); Urine Urobilinogen < 2.0 EU/DL (0.2-1.0); WBC,Urine 1 /HPF (0-6)
[2019-05-03] MEDS ORDERED: ONDANSETRON 4 MG/2 ML VIAL IV PRN (18:55)
[2019-05-03] MEDS ORDERED: ACETAMINOPHEN 500 MG TABLET PO PRN (18:55)
[2019-05-03] MEDS ORDERED: traZODone 50 MG TABLET PO PRN (18:58)
[2019-05-03] MEDS ORDERED: NITROGLYCERIN SL 0.4 MG TABLET SL PRN (19:01)
[2019-05-03] MEDS ORDERED: tiZANidine 4 MG TABLET PO PRN (19:01)
[2019-05-03] MEDS ORDERED: DEXTROSE 50% 25 GM/50 ML VIAL IV PRN (19:05)
[2019-05-03] MEDS ORDERED: GLUCAGON 1 MG VIAL IM PRN (19:05)
[2019-05-03] MEDS ORDERED: ALBUTEROL/IPRATROPIUM 3 ML NEB RESP TX PRN (19:06)
[2019-05-03] MEDS: MORPHINE 4 MG/1 ML VIAL IV PRN ×2 (19:14→23:04)
[2019-05-03] MEDS: RANOLAZINE 500 MG TABLET PO SCH (22:00)
[2019-05-03] MEDS: METOPROLOL SUCCINATE XL 25 MG TABLET PO SCH (22:01)
[2019-05-03] MEDS: TOPIRAMATE 100 MG TABLET PO SCH (22:01)
[2019-05-03] MEDS: GABAPENTIN 600 MG TABLET PO SCH (22:01)
[2019-05-03] MEDS: INSULIN REGULAR 100 UNIT/ML SUBCUT SCH (22:03)
[2019-05-03] MEDS: PIPERACILLIN/TAZOBACTAM 3,375 MG in SODIUM CHLORIDE 0.9% 100 ML IV SCH (22:37)
[2019-05-03] MEDS: DEXTROSE 5% NACL 0.45% 1,000 ML IV SCH (22:37)
[2019-05-04] MEDS: PIPERACILLIN/TAZOBACTAM 3,375 MG in SODIUM CHLORIDE 0.9% 100 ML IV SCH ×3 (05:19→21:58)
[2019-05-04] MEDS: MORPHINE 4 MG/1 ML VIAL IV PRN ×3 (05:23→22:08)
[2019-05-04 06:15] LABS: Basophils # 0.1 10*3/uL (0.0-0.2); Basophils % 0.7 % (0.0-0.8); Eosinophils # 0.4 10*3/uL (0.0-0.87); Eosinophils % 5.2 % (0.00-10.9); Hematocrit 44.6 VOL% (42.0-52.0); Hemoglobin 14.7 GM/DL (14.0-18.0); Immature Granulocytes % 0.6 %; Immature Granulocytes Absolute 0.04 #; Lymphocytes # 2.7 10*3/uL (1.4-4.0); Lymphocytes % 39.7 % (21.2-54.2); Mean Corpuscular Volume 92.1 FL (87-102); Mean Platelet Volume 11.1 FL (9.6-12.0); Monocytes % 9.7 % (1.7-12.7); Neutrophils % 44.1 % (38.7-73.9); Platelet Count 151 T/CUMM (130-400); Red Blood Count 4.84 MC/CUMM (3.8-5.5); Red Cell Distribution Width 12.8 % (9.3-17.3); White Blood Count 6.7 T/CUMM (4-12)
[2019-05-04 06:26] LABS: Calcium 8.6 MG/DL (8.5-10.1); Osmolality,Calculated 284.3 MOS/KG (273-304)
[2019-05-04 06:30] LABS: Risk Ratio 4.78
[2019-05-04 06:45] LABS: Eosinophils 7 % (0-10); Lymphocytes 41 % (20-55); Platelet Estimate Normal; Segmented Neutrophils 46 % (50-85); Total Cells Counted 100
[2019-05-04 06:46] LABS: Anisocytosis Slight; Microcytosis Slight; Polychromasia Slight
[2019-05-04] MEDS: ISOSORBIDE MONONITRATE 60 MG TABLET PO SCH (08:21)
[2019-05-04] MEDS: INSULIN REGULAR 100 UNIT/ML SUBCUT SCH ×4 (08:21→21:59)
[2019-05-04] MEDS: GABAPENTIN 600 MG TABLET PO SCH ×2 (08:21→21:59)
[2019-05-04] MEDS: RANOLAZINE 500 MG TABLET PO SCH ×2 (08:21→21:59)
[2019-05-04] MEDS: GEMFIBROZIL 600 MG TABLET PO SCH ×2 (08:21→16:39)
[2019-05-04] MEDS: METOPROLOL SUCCINATE XL 25 MG TABLET PO SCH ×2 (08:21→21:59)
[2019-05-04] MEDS: DEXTROSE 5% NACL 0.45% 1,000 ML IV SCH ×2 (08:23→22:42)
[2019-05-04] MEDS ORDERED: ATORVASTATIN 20 MG TABLET PO SCH (09:00)
[2019-05-04] MEDS: TOPIRAMATE 100 MG TABLET PO SCH (21:59)
[2019-05-05] MEDS: MORPHINE 4 MG/1 ML VIAL IV PRN (04:02)
[2019-05-05] MEDS: PIPERACILLIN/TAZOBACTAM 3,375 MG in SODIUM CHLORIDE 0.9% 100 ML IV SCH ×2 (04:02→12:30)
[2019-05-05 06:16] LABS: Basophils # 0.1 10*3/uL (0.0-0.2); Basophils % 0.8 % (0.0-0.8); Eosinophils # 0.5 10*3/uL (0.0-0.87); Eosinophils % 6.2 % (0.00-10.9); Hematocrit 42.2 VOL% (42.0-52.0); Hemoglobin 13.6 GM/DL (14.0-18.0); Immature Granulocytes % 0.5 %; Immature Granulocytes Absolute 0.04 #; Lymphocytes # 2.6 10*3/uL (1.4-4.0); Lymphocytes % 34.8 % (21.2-54.2); Mean Corpuscular HGB Conc 32.2 GM/DL (32-36); Mean Corpuscular Volume 93.2 FL (87-102); Mean Platelet Volume 10.7 FL (9.6-12.0); Monocytes % 9.9 % (1.7-12.7); Neutrophils % 47.8 % (38.7-73.9); Platelet Count 196 T/CUMM (130-400); Red Blood Count 4.53 MC/CUMM (3.8-5.5); Red Cell Distribution Width 12.9 % (9.3-17.3); White Blood Count 7.6 T/CUMM (4-12)
[2019-05-05 06:46] LABS: Calcium 8.5 MG/DL (8.5-10.1); Osmolality,Calculated 288.8 MOS/KG (273-304)
[2019-05-05] MEDS: GABAPENTIN 600 MG TABLET PO SCH (08:50)
[2019-05-05] MEDS: ISOSORBIDE MONONITRATE 60 MG TABLET PO SCH (08:50)
[2019-05-05] MEDS: METOPROLOL SUCCINATE XL 25 MG TABLET PO SCH (08:50)
[2019-05-05] MEDS: RANOLAZINE 500 MG TABLET PO SCH (08:50)
[2019-05-05] MEDS: GEMFIBROZIL 600 MG TABLET PO SCH (08:52)
[2019-05-05] MEDS: INSULIN REGULAR 100 UNIT/ML SUBCUT SCH ×2 (08:52→12:30)
[2019-05-05 11:31] VITALS: BP 139/83
[2019-05-05] MEDS: DEXTROSE 5% NACL 0.45% 1,000 ML IV SCH (13:00)
== END 2019-05-05 14:28 | disposition home or self-care (01) | DRG 379 ==
LOC: N.ED 16:20 → SUATTDRO 18:18 → N.EDINP 18:18 → N.5E 19:24
PROVIDERS: ADMIT Hospitalist; ATTEND Internal Medicine Geriatric Medicine

== ENCOUNTER 2020-04-17 15:39 | Inpatient (IN) ==
[2020-04-17] MEDS ORDERED: ACETAMINOPHEN 500 MG TABLET PO STA (16:58)
[2020-04-17] MEDS ORDERED: SODIUM CHLORIDE 0.9% 500 ML IV STA (16:58)
[2020-04-17] MEDS ORDERED: PIPERACILLIN/TAZOBACTAM 3,375 MG in SODIUM CHLORIDE 0.9% 100 ML IV STA (16:58)
[2020-04-17 17:33] LABS: Basophils % 0.5 % (0.0-0.8); Eosinophils % 0.2 % (0.00-10.9); Hematocrit 46.9 VOL% (42.0-52.0); Hemoglobin 15.5 GM/DL (14.0-18.0); Immature Granulocytes % 0.5 %; Immature Granulocytes Absolute 0.02 #; Lymphocytes # 1.1 10*3/uL (1.4-4.0); Lymphocytes % 27.8 % (21.2-54.2); Mean Platelet Volume 10.7 FL (9.6-12.0); Monocytes % 9.4 % (1.7-12.7); Neutrophils % 61.6 % (38.7-73.9); Platelet Count 93 T/CUMM (130-400); Red Blood Count 5.33 MC/CUMM (3.8-5.5); Red Cell Distribution Width 14.4 % (9.3-17.3); White Blood Count 4.1 T/CUMM (4-12)
[2020-04-17 17:49] LABS: Alanine Aminotransferase 68 U/L (16-61); Albumin 3.2 G/DL (3.4-5.0); Alkaline Phosphatase 80 U/L (45-117); Amylase 29 U/L (25-115); Aspartate Amino Transferase 61 U/L (0-37); Blood Urea Nitrogen 14 MG/DL (7-18); Calcium 8.7 MG/DL (8.5-10.1); Estimated Glom Filtration Rate 95 ML/MIN; Ferritin 221.1 ng/ml (26-388); Glucose 166 MG/DL (74-106); Osmolality,Calculated 266.7 MOS/KG (273-304); Total Protein 7.4 G/DL (6.4-8.3); Troponin I < 0.015 NG/ML (0.00-0.045)
[2020-04-17] MEDS ORDERED: OSELTAMIVIR 75 MG CAPSULE PO ONE (18:17)
[2020-04-17] MEDS ORDERED: DEXAMETHASONE 4 MG/1 ML VIAL IV STA (18:17)
[2020-04-17 18:48] LABS: Hypochromasia 1+
[2020-04-17 18:49] LABS: Platelet Estimate Decreased
[2020-04-17] MEDS ORDERED: ACETAMINOPHEN 325 MG TABLET PO PRN (19:37)
[2020-04-17] MEDS ORDERED: GLUCAGON 1 MG VIAL IM PRN ×2 (19:37→19:47)
[2020-04-17] MEDS ORDERED: guaiFENesin/DM ER 600-30 MG TABLET PO PRN (19:37)
[2020-04-17] MEDS ORDERED: DOCUSATE SODIUM 100 MG CAPSULE PO PRN (19:37)
[2020-04-17] MEDS ORDERED: DEXTROSE 50% 25 GM/50 ML VIAL IV PRN ×2 (19:37→19:47)
[2020-04-17] MEDS ORDERED: ONDANSETRON 4 MG/2 ML VIAL IV PRN (19:37)
[2020-04-17] MEDS ORDERED: BISACODYL 5 MG TABLET PO PRN (19:37)
[2020-04-17] MEDS ORDERED: ALBUTEROL 2.5 MG/3 ML NEB RESP TX PRN (19:40)
[2020-04-17] MEDS ORDERED: CETIRIZINE 10 MG TABLET PO STA (19:41)
[2020-04-17] MEDS ORDERED: NITROGLYCERIN SL 0.4 MG TABLET SL PRN (19:45)
[2020-04-17] MEDS ORDERED: tiZANidine 4 MG TABLET PO PRN (19:45)
[2020-04-17] MEDS ORDERED: MAGNESIUM SULF RIDER 2 GM in PREMIX 1 EACH IV ONE (19:51)
[2020-04-17] MEDS ORDERED: DEXTROSE 50% 25 GM/50 ML SYRINGE IV PRN (19:55)
[2020-04-17] MEDS ORDERED: METOPROLOL TARTRATE 25 MG TABLET ONE (20:23)
[2020-04-17] MEDS ORDERED: ASPIRIN 325 MG TABLET ONE (20:24)
[2020-04-17] MEDS: SODIUM CHLORIDE 0.9% 1,000 ML IV SCH (20:45)
[2020-04-17] MEDS: INSULIN REGULAR 100 UNIT/ML SUBCUT SCH (20:45)
[2020-04-17] MEDS: lisinopriL 2.5 MG TABLET PO SCH (21:20)
[2020-04-17] MEDS: METOPROLOL SUCCINATE XL 25 MG TABLET PO SCH (21:20)
[2020-04-17] MEDS: amLODIPine 2.5 MG TABLET PO SCH (21:20)
[2020-04-17] MEDS: ENOXAPARIN 40 MG/0.4 ML SYRINGE SUBCUT SCH (22:47)
[2020-04-17] MEDS: ASPIRIN EC 325 MG TABLET PO SCH (22:47)
[2020-04-17 23:11] LABS: Bacteria,Urine Occasional /HPF (Few); Bilirubin,Urine Negative (Negative); Blood, Urine Negative (Negative); Glucose,Urine (UA) >=500 mg/dL (Negative); Ketones,Urine 5 mg/dL (Negative); Mucus,Urine Occasional /LPF (Occasional); Nitrite,Urine Negative (Negative); Protein,Urine Negative; RBC,Urine 3 /HPF (0-4); Sperm,Urine Occasional /HPF (Negative); Urine Appearance CLEAR (Clear); Urine Color Yellow (Yellow); Urine Specific Gravity 1.037 (1.001-1.035); Urine Urobilinogen < 2.0 EU/DL (0.2-1.0); WBC,Urine <1 /HPF (0-6)
[2020-04-18] MEDS: PIPERACILLIN/TAZOBACTAM 3,375 MG in SODIUM CHLORIDE 0.9% 100 ML IV SCH ×3 (04:48→16:47)
[2020-04-18 04:58] LABS: Ferritin 233.8 ng/ml (26-388)
[2020-04-18 05:00] LABS: Bilirubin,Total 0.4 MG/DL (0.2-1.0); Calcium 8.5 MG/DL (8.5-10.1); Osmolality,Calculated 277.7 MOS/KG (273-304); Risk Ratio 3.93
[2020-04-18 05:10] LABS: Hematocrit 48.3 VOL% (42.0-52.0); Hemoglobin 15.7 GM/DL (14.0-18.0); Immature Granulocytes % 1.2 %; Immature Granulocytes Absolute 0.02 #; Lymphocytes # 0.5 10*3/uL (1.4-4.0); Lymphocytes % 30.2 % (21.2-54.2); Mean Corpuscular HGB Conc 32.5 GM/DL (32-36); Mean Corpuscular Volume 88.5 FL (87-102); Mean Platelet Volume 10.5 FL (9.6-12.0); Monocytes % 4.1 % (1.7-12.7); Neutrophils % 64.5 % (38.7-73.9); Platelet Count 105 T/CUMM (130-400); Red Blood Count 5.46 MC/CUMM (3.8-5.5); Red Cell Distribution Width 14.2 % (9.3-17.3); White Blood Count 1.7 T/CUMM (4-12)
[2020-04-18 05:43] LABS: Atypical Lymphocytes Few; Band Neutrophils 1 % (0-10); Hypochromasia 1+; Lymphocytes 20 % (20-55); Microcytosis Slight; Segmented Neutrophils 76 % (50-85); Total Cells Counted 100
[2020-04-18 05:44] LABS: Platelet Estimate Decreased
[2020-04-18] MEDS ORDERED: ATORVASTATIN 20 MG TABLET PO SCH (09:00)
[2020-04-18] MEDS ORDERED: ZINC SULFATE 220 MG CAPSULE PO SCH (09:00)
[2020-04-18] MEDS: INSULIN REGULAR 100 UNIT/ML SUBCUT SCH ×4 (09:18→21:44)
[2020-04-18] MEDS: PANTOPRAZOLE 40 MG TABLET PO SCH (10:23)
[2020-04-18] MEDS: DEXAMETHASONE 10 MG/1 ML VIAL IV SCH (10:24)
[2020-04-18] MEDS: ISOSORBIDE MONONITRATE 60 MG TABLET PO SCH (12:23)
[2020-04-18] MEDS: ASPIRIN EC 325 MG TABLET PO SCH ×2 (12:23→21:44)
[2020-04-18] MEDS: gemfibroziL 600 MG TABLET PO SCH ×2 (12:23→16:46)
[2020-04-18] MEDS: MELOXICAM 7.5 MG TABLET PO SCH (12:23)
[2020-04-18] MEDS: RANOLAZINE 500 MG TABLET PO SCH ×3 (12:24→21:45)
[2020-04-18] MEDS: OSELTAMIVIR 75 MG CAPSULE PO SCH (12:24)
[2020-04-18] MEDS: ASCORBIC ACID 500 MG TABLET PO SCH ×3 (12:24→21:46)
[2020-04-18] MEDS: TOPIRAMATE 100 MG TABLET PO SCH ×3 (12:24→21:45)
[2020-04-18] MEDS: GABAPENTIN 600 MG TABLET PO SCH ×4 (12:24→21:45)
[2020-04-18] MEDS: METOPROLOL SUCCINATE XL 25 MG TABLET PO SCH ×2 (12:24→21:46)
[2020-04-18] MEDS: PREGABALIN 75 MG CAPSULE PO SCH (12:24)
[2020-04-18] MEDS: SODIUM CHLORIDE 0.9% 1,000 ML IV SCH (15:38)
[2020-04-18] MEDS ORDERED: NON-FORMULARY MEDICATION (Insulin Glargine [Basaglar Kwikpen U-100 Insulin] 100 unit/mL (3 SUBCUT SCH (19:00)
[2020-04-18] MEDS ORDERED: INSULIN GLARGINE 100 UNIT/ML SUBCUT SCH (21:00)
[2020-04-18] MEDS: lisinopriL 2.5 MG TABLET PO SCH (21:45)
[2020-04-18] MEDS: amLODIPine 2.5 MG TABLET PO SCH (21:45)
[2020-04-18] MEDS: ENOXAPARIN 40 MG/0.4 ML SYRINGE SUBCUT SCH (22:09)
[2020-04-19] MEDS: PIPERACILLIN/TAZOBACTAM 3,375 MG in SODIUM CHLORIDE 0.9% 100 ML IV SCH ×2 (01:46→09:42)
[2020-04-19 05:46] LABS: Hematocrit 44.8 VOL% (42.0-52.0); Hemoglobin 14.8 GM/DL (14.0-18.0); Immature Granulocytes % 0.4 %; Immature Granulocytes Absolute 0.02 #; Lymphocytes # 1.1 10*3/uL (1.4-4.0); Lymphocytes % 19.6 % (21.2-54.2); Mean Corpuscular Volume 88.7 FL (87-102); Mean Platelet Volume 10.8 FL (9.6-12.0); Monocytes % 10.3 % (1.7-12.7); Neutrophils % 69.7 % (38.7-73.9); Platelet Count 111 T/CUMM (130-400); Red Blood Count 5.05 MC/CUMM (3.8-5.5); Red Cell Distribution Width 14.2 % (9.3-17.3); White Blood Count 5.4 T/CUMM (4-12)
[2020-04-19 06:07] LABS: Microcytosis Slight
[2020-04-19 06:10] LABS: Calcium 8.5 MG/DL (8.5-10.1); Osmolality,Calculated 284.5 MOS/KG (273-304)
[2020-04-19] MEDS ORDERED: ASPIRIN EC 325 MG TABLET PO SCH (09:00)
[2020-04-19] MEDS ORDERED: NON-FORMULARY MEDICATION (Insulin Glargine [Basaglar Kwikpen U-100 Insulin] 100 unit/mL (3 SUBCUT SCH (09:00)
[2020-04-19] MEDS ORDERED: NON-FORMULARY MEDICATION (Liraglutide [Victoza 2-Pak] 0.6 MG/0.1 ML pen injector) SUBCUT SCH (09:00)
[2020-04-19] MEDS ORDERED: INSULIN GLARGINE 100 UNIT/ML SUBCUT SCH (09:00)
[2020-04-19] MEDS: gemfibroziL 600 MG TABLET PO SCH (09:39)
[2020-04-19] MEDS: INSULIN REGULAR 100 UNIT/ML SUBCUT SCH ×2 (09:39→12:22)
[2020-04-19] MEDS: PREGABALIN 75 MG CAPSULE PO SCH (09:40)
[2020-04-19] MEDS: GABAPENTIN 600 MG TABLET PO SCH (09:40)
[2020-04-19] MEDS: MELOXICAM 7.5 MG TABLET PO SCH (09:40)
[2020-04-19] MEDS: PANTOPRAZOLE 40 MG TABLET PO SCH (09:40)
[2020-04-19] MEDS: ISOSORBIDE MONONITRATE 60 MG TABLET PO SCH (09:40)
[2020-04-19] MEDS: DEXAMETHASONE 10 MG/1 ML VIAL IV SCH (09:40)
[2020-04-19] MEDS: TOPIRAMATE 100 MG TABLET PO SCH (09:41)
[2020-04-19] MEDS: OSELTAMIVIR 75 MG CAPSULE PO SCH (09:41)
[2020-04-19] MEDS: RANOLAZINE 500 MG TABLET PO SCH (09:41)
[2020-04-19] MEDS: ASCORBIC ACID 500 MG TABLET PO SCH (09:41)
[2020-04-19] MEDS: METOPROLOL SUCCINATE XL 25 MG TABLET PO SCH (09:41)
[2020-04-19 11:36] VITALS: BP 129/75
== END 2020-04-19 13:10 | disposition home or self-care (01) | DRG 177 ==
LOC: N.ED 15:39 → SUATTDRO 19:36 → N.EDINP 19:36 → N.2E 19:40
PROVIDERS: ADMIT Internal Medicine; ATTEND Internal Medicine

== ENCOUNTER 2020-12-05 16:42 | Inpatient (IN) ==
[2020-12-05 17:16] LABS: Basophils # 0.1 10*3/uL (0.0-0.2); Basophils % 0.8 % (0.0-0.8); Eosinophils # 0.4 10*3/uL (0.0-0.87); Eosinophils % 4.5 % (0.00-10.9); Hematocrit 46.4 VOL% (42.0-52.0); Hemoglobin 15.2 GM/DL (14.0-18.0); Immature Granulocytes % 0.5 %; Immature Granulocytes Absolute 0.04 #; Lymphocytes # 2.2 10*3/uL (1.4-4.0); Lymphocytes % 27.4 % (21.2-54.2); Mean Corpuscular HGB Conc 32.8 GM/DL (32-36); Mean Corpuscular Volume 91.7 FL (87-102); Mean Platelet Volume 11.2 FL (9.6-12.0); Monocytes % 9.4 % (1.7-12.7); Neutrophils % 57.4 % (38.7-73.9); Platelet Count 168 T/CUMM (130-400); Red Blood Count 5.06 MC/CUMM (3.8-5.5); Red Cell Distribution Width 13.1 % (9.3-17.3)
[2020-12-05 17:31] LABS: Alanine Aminotransferase 58 U/L (16-61); Albumin 3.3 G/DL (3.4-5.0); Alkaline Phosphatase 111 U/L (45-117); Aspartate Amino Transferase 31 U/L (0-37); Bilirubin,Total < 0.39 MG/DL (0.2-1.0); Blood Urea Nitrogen 23 MG/DL (7-18); Calcium 8.5 MG/DL (8.5-10.1); Carbon Dioxide 24 MMOL/L (21-32); Estimated Glom Filtration Rate 96 ML/MIN; Glucose 454 MG/DL (74-106); Potassium 4.6 MMOL/L (3.5-5.1); Sodium 136 MMOL/L (136-145); Total Protein 7.1 G/DL (6.4-8.2)
[2020-12-05] MEDS ORDERED: MORPHINE 4 MG/1 ML VIAL IV STA (17:48)
[2020-12-05] MEDS ORDERED: ONDANSETRON 4 MG/2 ML VIAL IV ONE (17:48)
[2020-12-05] MEDS ORDERED: NITROGLYCERIN SL 0.4 MG TABLET SL STA (17:48)
[2020-12-05] MEDS ORDERED: ENOXAPARIN 30 MG/0.3 ML SYRINGE SUBCUT STA (17:49)
[2020-12-05] MEDS ORDERED: tiZANidine 4 MG TABLET PO PRN (19:11)
[2020-12-05] MEDS ORDERED: ONDANSETRON 4 MG/2 ML VIAL IV PRN (19:14)
[2020-12-05] MEDS ORDERED: DEXTROSE 50% 25 GM/50 ML VIAL IV PRN ×2 (19:14→20:26)
[2020-12-05] MEDS ORDERED: GLUCAGON 1 MG VIAL IM PRN (19:14)
[2020-12-05] MEDS ORDERED: NON-FORMULARY MEDICATION (Insulin Glargine [Basaglar Kwikpen U-100 Insulin] 100 unit/mL (3 SUBCUT SCH (19:15)
[2020-12-05] MEDS ORDERED: ENOXAPARIN 100 MG/ML SYRINGE SUBCUT SCH (19:30)
[2020-12-05] MEDS ORDERED: ENOXAPARIN 30 MG/0.3 ML SYRINGE SUBCUT SCH (19:30)
[2020-12-05] MEDS ORDERED: ENOXAPARIN 80 MG/0.8 ML SYRINGE SUBCUT SCH ×2 (19:30→20:00)
[2020-12-05] MEDS ORDERED: INSULIN GLARGINE 100 UNIT/ML SUBCUT ONE (20:00)
[2020-12-05] MEDS: INSULIN LISPRO 100 UNIT/ML SUBCUT SCH (20:55)
[2020-12-05] MEDS: NITROGLYCERIN SL 0.4 MG TABLET SL PRN (22:02)
[2020-12-05] MEDS ORDERED: SIMVASTATIN 20 MG TABLET PO SCH (22:22)
[2020-12-05] MEDS: GABAPENTIN 600 MG TABLET PO SCH (23:54)
[2020-12-05] MEDS: lisinopriL 2.5 MG TABLET PO SCH (23:54)
[2020-12-05] MEDS: amLODIPine 2.5 MG TABLET PO SCH (23:54)
[2020-12-05] MEDS: LACTATED RINGERS 1,000 ML IV SCH (23:56)
[2020-12-06] MEDS: MORPHINE 4 MG/1 ML VIAL IV PRN ×2 (00:21→08:18)
[2020-12-06 02:17] LABS: Basophils # 0.1 10*3/uL (0.0-0.2); Basophils % 0.7 % (0.0-0.8); Eosinophils # 0.5 10*3/uL (0.0-0.87); Eosinophils % 5.6 % (0.00-10.9); Hematocrit 44.6 VOL% (42.0-52.0); Hemoglobin 15.2 GM/DL (14.0-18.0); Immature Granulocytes % 0.6 %; Immature Granulocytes Absolute 0.05 #; Lymphocytes % 36.5 % (21.2-54.2); Mean Corpuscular HGB Conc 34.1 GM/DL (32-36); Mean Corpuscular Volume 91.6 FL (87-102); Mean Platelet Volume 10.8 FL (9.6-12.0); Monocytes % 10.2 % (1.7-12.7); Neutrophils % 46.4 % (38.7-73.9); Platelet Count 167 T/CUMM (130-400); Red Blood Count 4.87 MC/CUMM (3.8-5.5); White Blood Count 8.2 T/CUMM (4-12)
[2020-12-06] MEDS: NITROGLYCERIN SL 0.4 MG TABLET SL PRN ×3 (04:46→08:14)
[2020-12-06 06:21] LABS: Alkaline Phosphatase 91 U/L (45-117); Calcium 7.8 MG/DL (8.5-10.1); Carbon Dioxide 16 MMOL/L (21-32); Estimated Glom Filtration Rate 127 ML/MIN; Glucose 274 MG/DL (74-106); HDL Cholesterol 19 MG/DL (40-60); Potassium 3.5 MMOL/L (3.5-5.1); Risk Ratio 9.53; Sodium 135 MMOL/L (136-145); Triglycerides 1767 MG/DL (2-150); VLDL Cholesterol 353.4 MG/DL
[2020-12-06 06:22] LABS: Blood Urea Nitrogen 20 MG/DL (7-18); Osmolality,Calculated 282.1 MOS/KG (273-304)
[2020-12-06 06:42] LABS: Aspartate Amino Transferase 30 U/L (0-37)
[2020-12-06 06:59] LABS: Alanine Aminotransferase 50 U/L (16-61)
[2020-12-06] MEDS: INSULIN LISPRO 100 UNIT/ML SUBCUT SCH ×4 (07:23→21:18)
[2020-12-06] MEDS ORDERED: ENOXAPARIN 30 MG/0.3 ML SYRINGE SUBCUT SCH (07:30)
[2020-12-06] MEDS ORDERED: ENOXAPARIN 80 MG/0.8 ML SYRINGE SUBCUT SCH (07:30)
[2020-12-06] MEDS ORDERED: diphenhydrAMINE CAP 50 MG CAPSULE PO ONE (07:31)
[2020-12-06] MEDS ORDERED: MAGNESIUM SULF RIDER 2 GM/50 ML PREMIX IV PRN (07:31)
[2020-12-06] MEDS ORDERED: POTASSIUM CHLORIDE RIDER 10 MEQ/100 ML PREMIX IV PRN (07:31)
[2020-12-06] MEDS ORDERED: HEPARIN/NACL 0.9% 2 UNITS/ML 2,000 UNIT/1,000 ML BAG IV ONE (08:40)
[2020-12-06] MEDS ORDERED: LIDOCAINE 1% 20 ML VIAL ONE (08:40)
[2020-12-06] MEDS ORDERED: LIDOCAINE 1%/EPI INJ 20 ML VIAL ONE (08:46)
[2020-12-06] MEDS ORDERED: MIDAZOLAM 2 MG/2 ML VIAL ONE ×2 (08:47→09:42)
[2020-12-06] MEDS ORDERED: fentaNYL 100 MCG/2 ML VIAL ONE (08:47)
[2020-12-06] MEDS ORDERED: ASPIRIN EC 325 MG TABLET PO SCH (09:00)
[2020-12-06] MEDS ORDERED: FENOFIBRATE 145 MG TABLET PO SCH (09:00)
[2020-12-06] MEDS ORDERED: METOPROLOL SUCCINATE XL 25 MG TABLET PO SCH (09:00)
[2020-12-06] MEDS ORDERED: METOPROLOL TARTRATE 25 MG TABLET PO SCH (09:00)
[2020-12-06] MEDS ORDERED: NON-FORMULARY MEDICATION (Insulin Glargine [Basaglar Kwikpen U-100 Insulin] 100 unit/mL (3 SUBCUT SCH (09:00)
[2020-12-06] MEDS ORDERED: TIROFIBAN 5,000 MCG/100 ML PREMIX IV ONE (09:21)
[2020-12-06] MEDS ORDERED: ENOXAPARIN 60 MG/0.6 ML SYRINGE ONE (09:21)
[2020-12-06] MEDS ORDERED: TIROFIBAN 5,000 MCG/100 ML PREMIX IV SCH (09:30)
[2020-12-06] MEDS ORDERED: TICAGRELOR 90 MG TABLET ONE (09:40)
[2020-12-06] MEDS: NON-FORMULARY MEDICATION (Liraglutide [Victoza 3-Pak] 0.6 mg/0.1 mL (18 mg/3 mL) Pen Injec SUBCUT SCH (10:57)
[2020-12-06] MEDS: INSULIN GLARGINE 100 UNIT/ML SUBCUT SCH (10:57)
[2020-12-06] MEDS: PREGABALIN 75 MG CAPSULE PO SCH (10:58)
[2020-12-06] MEDS: GABAPENTIN 600 MG TABLET PO SCH ×3 (10:58→21:18)
[2020-12-06] MEDS ORDERED: SODIUM CHLORIDE 0.45% 1,000 ML IV SCH (11:00)
[2020-12-06] MEDS: LACTATED RINGERS 1,000 ML IV SCH (15:57)
[2020-12-06] MEDS: METOPROLOL TARTRATE 25 MG TABLET PO SCH ×2 (15:59→21:17)
[2020-12-06] MEDS: PANTOPRAZOLE 40 MG TABLET PO SCH (16:46)
[2020-12-06] MEDS: FENOFIBRATE 145 MG TABLET PO SCH (16:47)
[2020-12-06] MEDS: TOPIRAMATE 100 MG TABLET PO SCH (16:47)
[2020-12-06] MEDS: ISOSORBIDE MONONITRATE 60 MG TABLET PO SCH (16:47)
[2020-12-06] MEDS ORDERED: ATORVASTATIN 20 MG TABLET PO SCH (19:11)
[2020-12-06] MEDS: amLODIPine 2.5 MG TABLET PO SCH (21:17)
[2020-12-06] MEDS: lisinopriL 2.5 MG TABLET PO SCH (21:55)
[2020-12-07 04:34] LABS: Basophils # 0.1 10*3/uL (0.0-0.2); Basophils % 0.7 % (0.0-0.8); Eosinophils # 0.5 10*3/uL (0.0-0.87); Eosinophils % 5.3 % (0.00-10.9); Hematocrit 43.2 VOL% (42.0-52.0); Hemoglobin 14.5 GM/DL (14.0-18.0); Immature Granulocytes % 0.5 %; Immature Granulocytes Absolute 0.04 #; Lymphocytes # 2.1 10*3/uL (1.4-4.0); Lymphocytes % 24.7 % (21.2-54.2); Mean Corpuscular HGB Conc 33.6 GM/DL (32-36); Mean Corpuscular Volume 90.4 FL (87-102); Mean Platelet Volume 11.1 FL (9.6-12.0); Monocytes % 11.4 % (1.7-12.7); Neutrophils % 57.4 % (38.7-73.9); Platelet Count 173 T/CUMM (130-400); Red Blood Count 4.78 MC/CUMM (3.8-5.5); Red Cell Distribution Width 12.9 % (9.3-17.3); White Blood Count 8.5 T/CUMM (4-12)
[2020-12-07 05:21] LABS: Bilirubin,Total 0.6 MG/DL (0.2-1.0); Calcium 8.8 MG/DL (8.5-10.1); Osmolality,Calculated 284.7 MOS/KG (273-304); Potassium 4.4 MMOL/L (3.5-5.1); Risk Ratio 6.44; Thyroid Stimulating Hormone 0.583 uIU/ml (0.358-3.74); Total Protein 6.7 G/DL (6.4-8.2); VLDL Cholesterol 123.2 MG/DL
[2020-12-07 08:13] VITALS: BP 116/68
[2020-12-07] MEDS: INSULIN LISPRO 100 UNIT/ML SUBCUT SCH (08:40)
[2020-12-07] MEDS: INSULIN GLARGINE 100 UNIT/ML SUBCUT SCH (08:40)
[2020-12-07] MEDS: PANTOPRAZOLE 40 MG TABLET PO SCH (08:41)
[2020-12-07] MEDS: GABAPENTIN 600 MG TABLET PO SCH (08:41)
[2020-12-07] MEDS: TOPIRAMATE 100 MG TABLET PO SCH (08:41)
[2020-12-07] MEDS: METOPROLOL TARTRATE 25 MG TABLET PO SCH (08:41)
[2020-12-07] MEDS: NON-FORMULARY MEDICATION (Liraglutide [Victoza 3-Pak] 0.6 mg/0.1 mL (18 mg/3 mL) Pen Injec SUBCUT SCH (08:42)
[2020-12-07] MEDS: ISOSORBIDE MONONITRATE 60 MG TABLET PO SCH (08:42)
[2020-12-07] MEDS: FENOFIBRATE 145 MG TABLET PO SCH (08:42)
[2020-12-07] MEDS: PREGABALIN 75 MG CAPSULE PO SCH (08:42)
[2020-12-07] MEDS ORDERED: ASPIRIN EC 81 MG TABLET PO SCH (09:00)
[2020-12-07] MEDS ORDERED: TICAGRELOR 90 MG TABLET PO SCH (09:00)
== END 2020-12-07 11:20 | disposition home or self-care (01) | DRG 247 ==
LOC: N.ED 16:42 → N.EDINP 16:42 → N.TELEN 22:15
PROVIDERS: ADMIT Internal Medicine; ATTEND Internal Medicine

== ENCOUNTER 2021-10-29 10:43 | Observation (INO) ==
[2021-10-29 11:13] LABS: Basophils # 0.1 10*3/uL (0.0-0.2); Basophils % 0.9 % (0.0-0.8); Eosinophils # 0.5 10*3/uL (0.0-0.87); Eosinophils % 6.9 % (0.00-10.9); Hematocrit 45.9 VOL% (42.0-52.0); Hemoglobin 14.8 GM/DL (14.0-18.0); Immature Granulocytes % 1.1 %; Immature Granulocytes Absolute 0.07 #; Lymphocytes # 1.8 10*3/uL (1.4-4.0); Lymphocytes % 26.7 % (21.2-54.2); Mean Corpuscular HGB Conc 32.2 GM/DL (32-36); Mean Corpuscular Volume 91.1 FL (87-102); Mean Platelet Volume 10.7 FL (9.6-12.0); Monocytes # 0.6 10*3/uL (0.11-0.8); Monocytes % 8.5 % (1.7-12.7); Neutrophils % 55.9 % (38.7-73.9); Platelet Count 214 T/CUMM (130-400); Red Blood Count 5.04 MC/CUMM (3.8-5.5); Red Cell Distribution Width 13.8 % (9.3-17.3); White Blood Count 6.6 T/CUMM (4-12)
[2021-10-29] MEDS ORDERED: MORPHINE 2 MG/1 ML SYRINGE IV STA (11:18)
[2021-10-29] MEDS ORDERED: SODIUM CHLORIDE 0.9% 5,000 ML IV STA (11:18)
[2021-10-29] MEDS ORDERED: ASPIRIN 325 MG TABLET PO STA (11:18)
[2021-10-29] MEDS ORDERED: ONDANSETRON 4 MG/2 ML VIAL IV ONE (11:18)
[2021-10-29] MEDS ORDERED: NITROGLYCERIN 2% OINT 1 INCH/GM PACK TOP STA (11:18)
[2021-10-29] MEDS ORDERED: SODIUM CHLORIDE 0.9% 500 ML IV STA (11:22)
[2021-10-29 11:33] LABS: Alanine Aminotransferase 33 U/L (16-61); Albumin 3.5 G/DL (3.4-5.0); Alkaline Phosphatase 86 U/L (45-117); Aspartate Amino Transferase 21 U/L (0-37); Bilirubin,Total < 0.39 MG/DL (0.20-1.00); Blood Urea Nitrogen 29 MG/DL (7-18); Calcium 9.9 MG/DL (8.5-10.1); Carbon Dioxide 26 MMOL/L (21-32); Chloride 104 MMOL/L (98-107); Glucose 439 MG/DL (74-106); Osmolality,Calculated 297.8 MOS/KG (273-304); Potassium 4.3 MMOL/L (3.5-5.1); Sodium 137 MMOL/L (136-145); Total Protein 7.3 G/DL (6.4-8.2)
[2021-10-29 12:00] LABS: INR 0.9; PT Patient Result 10.3 SECS (10.5-12.0)
[2021-10-29] MEDS ORDERED: ONDANSETRON 4 MG/2 ML VIAL IV PRN (14:52)
[2021-10-29] MEDS ORDERED: ACETAMINOPHEN 325 MG TABLET PO PRN (14:52)
[2021-10-29] MEDS ORDERED: DEXTROSE 10% 25 GM/250 ML BAG IV PRN (14:52)
[2021-10-29] MEDS ORDERED: GLUCAGON 1 MG VIAL IM PRN (14:52)
[2021-10-29] MEDS ORDERED: tiZANidine 4 MG TABLET PO PRN (14:56)
[2021-10-29] MEDS ORDERED: traMADol 50 MG TABLET PO PRN (14:56)
[2021-10-29] MEDS ORDERED: NITROGLYCERIN SL 0.4 MG TABLET SL PRN (14:56)
[2021-10-29] MEDS: ENOXAPARIN 40 MG/0.4 ML SYRINGE SUBCUT SCH (16:12)
[2021-10-29] MEDS: GABAPENTIN 600 MG TABLET PO SCH ×2 (18:12→21:16)
[2021-10-29] MEDS: INSULIN LISPRO 100 UNIT/ML SUBCUT SCH (18:25)
[2021-10-29] MEDS ORDERED: FENOFIBRATE 145 MG TABLET PO SCH (21:00)
[2021-10-29] MEDS: METOPROLOL SUCCINATE XL 25 MG TABLET PO SCH (21:15)
[2021-10-29] MEDS: INSULIN GLARGINE 100 UNIT/ML SUBCUT SCH (21:16)
[2021-10-29] MEDS: lisinopriL 2.5 MG TABLET PO SCH (21:16)
[2021-10-29] MEDS: TICAGRELOR 90 MG TABLET PO SCH (21:16)
[2021-10-29] MEDS: PANTOPRAZOLE 40 MG TABLET PO SCH (21:16)
[2021-10-29] MEDS: ISOSORBIDE MONONITRATE 60 MG TABLET PO SCH (21:16)
[2021-10-30 04:36] LABS: Basophils # 0.1 10*3/uL (0.0-0.2); Eosinophils # 0.5 10*3/uL (0.0-0.87); Eosinophils % 6.9 % (0.00-10.9); Hematocrit 41.8 VOL% (42.0-52.0); Hemoglobin 13.4 GM/DL (14.0-18.0); Immature Granulocytes % 0.8 %; Immature Granulocytes Absolute 0.06 #; Lymphocytes # 2.9 10*3/uL (1.4-4.0); Lymphocytes % 40.1 % (21.2-54.2); Mean Corpuscular HGB Conc 32.1 GM/DL (32-36); Mean Corpuscular Volume 92.3 FL (87-102); Mean Platelet Volume 10.5 FL (9.6-12.0); Monocytes # 0.8 10*3/uL (0.11-0.8); Monocytes % 10.6 % (1.7-12.7); Neutrophils % 40.6 % (38.7-73.9); Platelet Count 204 T/CUMM (130-400); Red Blood Count 4.53 MC/CUMM (3.8-5.5); Red Cell Distribution Width 13.9 % (9.3-17.3); White Blood Count 7.3 T/CUMM (4-12)
[2021-10-30 05:07] LABS: Calcium 8.8 MG/DL (8.5-10.1); Potassium 4.1 MMOL/L (3.5-5.1); Risk Ratio 9.11; VLDL Cholesterol 224.8 MG/DL
[2021-10-30] MEDS ORDERED: MAGNESIUM SULF RIDER 2 GM/50 ML PREMIX IV PRN (08:40)
[2021-10-30] MEDS ORDERED: POTASSIUM CHLORIDE RIDER 10 MEQ/100 ML PREMIX IV PRN (08:40)
[2021-10-30] MEDS: OMEGA 3 ACID ETHYL ESTERS 1 GM CAPSULE PO SCH ×2 (11:13→22:07)
[2021-10-30] MEDS: ASPIRIN EC 81 MG TABLET PO SCH (11:13)
[2021-10-30] MEDS: amLODIPine 5 MG TABLET PO SCH (11:13)
[2021-10-30] MEDS: TICAGRELOR 90 MG TABLET PO SCH ×2 (11:13→22:07)
[2021-10-30] MEDS: GABAPENTIN 600 MG TABLET PO SCH ×3 (11:13→22:07)
[2021-10-30] MEDS: INSULIN LISPRO 100 UNIT/ML SUBCUT SCH ×3 (11:26→22:09)
[2021-10-30] MEDS: METOPROLOL SUCCINATE XL 25 MG TABLET PO SCH ×2 (11:27→22:07)
[2021-10-30] MEDS: ENOXAPARIN 40 MG/0.4 ML SYRINGE SUBCUT SCH (15:30)
[2021-10-30] MEDS: PANTOPRAZOLE 40 MG TABLET PO SCH (22:06)
[2021-10-30] MEDS: ISOSORBIDE MONONITRATE 60 MG TABLET PO SCH (22:06)
[2021-10-30] MEDS: INSULIN GLARGINE 100 UNIT/ML SUBCUT SCH (22:08)
[2021-10-30] MEDS: FENOFIBRATE 160 MG TABLET PO SCH (22:14)
[2021-10-30] MEDS: lisinopriL 2.5 MG TABLET PO SCH (22:15)
[2021-10-31 04:21] LABS: Basophils # 0.1 10*3/uL (0.0-0.2); Eosinophils # 0.5 10*3/uL (0.0-0.87); Eosinophils % 5.4 % (0.00-10.9); Hemoglobin 14.6 GM/DL (14.0-18.0); Immature Granulocytes Absolute 0.08 #; Lymphocytes # 3.4 10*3/uL (1.4-4.0); Lymphocytes % 40.4 % (21.2-54.2); Mean Corpuscular HGB Conc 32.4 GM/DL (32-36); Mean Corpuscular Volume 91.1 FL (87-102); Mean Platelet Volume 10.3 FL (9.6-12.0); Monocytes # 0.8 10*3/uL (0.11-0.8); Monocytes % 9.7 % (1.7-12.7); Neutrophils % 42.5 % (38.7-73.9); Platelet Count 210 T/CUMM (130-400); Red Blood Count 4.94 MC/CUMM (3.8-5.5); Red Cell Distribution Width 13.6 % (9.3-17.3); White Blood Count 8.4 T/CUMM (4-12)
[2021-10-31 04:44] LABS: Osmolality,Calculated 290.8 MOS/KG (273-304); Potassium 4.4 MMOL/L (3.5-5.1)
[2021-10-31] MEDS ORDERED: SODIUM CHLORIDE 0.45% 1,000 ML IV SCH (07:00)
[2021-10-31] MEDS ORDERED: diphenhydrAMINE CAP 25 MG CAPSULE PO ONE (08:40)
[2021-10-31] MEDS ORDERED: DIAZEPAM 5 MG TABLET PO ONE (08:40)
[2021-10-31] MEDS ORDERED: diphenhydrAMINE CAP 50 MG CAPSULE PO ONE (08:40)
[2021-10-31] MEDS ORDERED: ATORVASTATIN 20 MG TABLET PO SCH (09:00)
[2021-10-31] MEDS ORDERED: HEPARIN/NACL 0.9% 2 UNITS/ML 2,000 UNIT/1,000 ML BAG IV ONE (09:46)
[2021-10-31] MEDS ORDERED: fentaNYL 100 MCG/2 ML VIAL ONE ×2 (09:46→10:38)
[2021-10-31] MEDS ORDERED: LIDOCAINE 1%/EPI INJ 20 ML VIAL ONE (09:46)
[2021-10-31] MEDS ORDERED: MIDAZOLAM 2 MG/2 ML VIAL ONE ×2 (09:46→10:22)
[2021-10-31] MEDS ORDERED: ENOXAPARIN 60 MG/0.6 ML SYRINGE ONE (10:35)
[2021-10-31] MEDS ORDERED: TIROFIBAN 5,000 MCG/100 ML PREMIX IV ONE (10:37)
[2021-10-31] MEDS ORDERED: TICAGRELOR 90 MG TABLET ONE (10:50)
[2021-10-31] MEDS: TICAGRELOR 90 MG TABLET PO SCH ×2 (11:31→21:41)
[2021-10-31] MEDS: GABAPENTIN 600 MG TABLET PO SCH ×3 (11:31→21:40)
[2021-10-31] MEDS: OMEGA 3 ACID ETHYL ESTERS 1 GM CAPSULE PO SCH ×2 (11:32→21:40)
[2021-10-31] MEDS: INSULIN LISPRO 100 UNIT/ML SUBCUT SCH ×3 (11:40→18:26)
[2021-10-31] MEDS: amLODIPine 5 MG TABLET PO SCH (12:15)
[2021-10-31] MEDS: ASPIRIN EC 81 MG TABLET PO SCH (12:16)
[2021-10-31] MEDS: FENOFIBRATE 160 MG TABLET PO SCH (21:40)
[2021-10-31] MEDS: ISOSORBIDE MONONITRATE 60 MG TABLET PO SCH (21:40)
[2021-10-31] MEDS: METOPROLOL SUCCINATE XL 25 MG TABLET PO SCH (21:40)
[2021-10-31] MEDS: INSULIN GLARGINE 100 UNIT/ML SUBCUT SCH (21:41)
[2021-10-31] MEDS: PANTOPRAZOLE 40 MG TABLET PO SCH (21:41)
[2021-11-01 04:37] LABS: Basophils # 0.1 10*3/uL (0.0-0.2); Basophils % 0.7 % (0.0-0.8); Eosinophils # 0.3 10*3/uL (0.0-0.87); Eosinophils % 3.8 % (0.00-10.9); Hematocrit 45.7 VOL% (42.0-52.0); Immature Granulocytes % 0.7 %; Immature Granulocytes Absolute 0.06 #; Lymphocytes # 2.7 10*3/uL (1.4-4.0); Lymphocytes % 32.2 % (21.2-54.2); Mean Corpuscular HGB Conc 32.8 GM/DL (32-36); Mean Corpuscular Volume 90.7 FL (87-102); Mean Platelet Volume 10.7 FL (9.6-12.0); Monocytes # 0.9 10*3/uL (0.11-0.8); Monocytes % 10.9 % (1.7-12.7); Neutrophils % 51.7 % (38.7-73.9); Platelet Count 233 T/CUMM (130-400); Red Blood Count 5.04 MC/CUMM (3.8-5.5); Red Cell Distribution Width 13.5 % (9.3-17.3); White Blood Count 8.5 T/CUMM (4-12)
[2021-11-01 05:05] LABS: Osmolality,Calculated 283.2 MOS/KG (273-304)
[2021-11-01 08:23] VITALS: BP 129/85
[2021-11-01] MEDS: GABAPENTIN 600 MG TABLET PO SCH (08:54)
[2021-11-01] MEDS: TICAGRELOR 90 MG TABLET PO SCH (08:54)
[2021-11-01] MEDS: OMEGA 3 ACID ETHYL ESTERS 1 GM CAPSULE PO SCH (08:54)
[2021-11-01] MEDS: amLODIPine 5 MG TABLET PO SCH (08:54)
[2021-11-01] MEDS: ASPIRIN EC 81 MG TABLET PO SCH (08:54)
[2021-11-01] MEDS: INSULIN LISPRO 100 UNIT/ML SUBCUT SCH (08:54)
== END 2021-11-01 09:05 | disposition home or self-care (01) ==
LOC: N.ED 10:43 → N.EDINP 10:43 → SUATTDRO 14:52 → N.TELEN 16:16
PROVIDERS: ADMIT Internal Medicine; ATTEND Internal Medicine

== ENCOUNTER 2022-02-14 03:55 | Observation (INO) ==
[2022-02-14] MEDS ORDERED: ONDANSETRON 4 MG/2 ML VIAL IV STA (04:08)
[2022-02-14] MEDS ORDERED: NITROGLYCERIN 2% OINT 1 INCH/GM PACK TOP STA (04:08)
[2022-02-14] MEDS ORDERED: ALUM/MAG/SIMETH/LIDO VISC 1:1 30 ML BOTTLE PO STA (04:08)
[2022-02-14] MEDS ORDERED: MORPHINE 2 MG/1 ML SYRINGE IV STA (04:08)
[2022-02-14] MEDS ORDERED: ASPIRIN 325 MG TABLET PO STA (04:08)
[2022-02-14] MEDS ORDERED: ENOXAPARIN 100 MG/ML SYRINGE SUBCUT STA (04:13)
[2022-02-14 05:10] LABS: Basophils # 0.1 10*3/uL (0.0-0.2); Basophils % 0.8 % (0.0-0.8); Eosinophils # 0.3 10*3/uL (0.0-0.87); Eosinophils % 4.2 % (0.00-10.9); Hematocrit 49.3 VOL% (42.0-52.0); Hemoglobin 16.2 GM/DL (14.0-18.0); Immature Granulocytes % 0.8 %; Immature Granulocytes Absolute 0.06 #; Lymphocytes # 2.8 10*3/uL (1.4-4.0); Lymphocytes % 38.8 % (21.2-54.2); Mean Corpuscular HGB Conc 32.9 GM/DL (32-36); Mean Corpuscular Volume 93.5 FL (87-102); Mean Platelet Volume 10.5 FL (9.6-12.0); Monocytes # 0.7 10*3/uL (0.11-0.8); Monocytes % 10.4 % (1.7-12.7); Platelet Count 220 T/CUMM (130-400); Red Blood Count 5.27 MC/CUMM (3.8-5.5); Red Cell Distribution Width 13.5 % (9.3-17.3); White Blood Count 7.1 T/CUMM (4-12)
[2022-02-14 05:18] LABS: INR 0.9; Partial Thromboplastin Time 28.3 SECS (23.7-32.9)
[2022-02-14 05:40] LABS: Alanine Aminotransferase 38 U/L (16-61); Albumin 3.6 G/DL (3.4-5.0); Alkaline Phosphatase 75 U/L (45-117); Aspartate Amino Transferase 24 U/L (0-37); Bilirubin,Total < 0.39 MG/DL (0.20-1.00); Blood Urea Nitrogen 31 MG/DL (7-18); Calcium 9.5 MG/DL (8.5-10.1); Carbon Dioxide 21 MMOL/L (21-32); Chloride 106 MMOL/L (98-107); Glucose 240 MG/DL (74-106); Potassium 3.9 MMOL/L (3.5-5.1); Sodium 136 MMOL/L (136-145); Total Protein 7.5 G/DL (6.4-8.2)
[2022-02-14] MEDS ORDERED: GLUCAGON 1 MG VIAL IM PRN (05:46)
[2022-02-14] MEDS ORDERED: DEXTROSE 10% 250 ML BAG IV PRN ×2 (05:46→08:33)
[2022-02-14] MEDS ORDERED: MORPHINE 2 MG/1 ML SYRINGE IV PRN (05:46)
[2022-02-14] MEDS ORDERED: tiZANidine 4 MG TABLET PO PRN (05:49)
[2022-02-14] MEDS ORDERED: traMADol 50 MG TABLET PO PRN (05:49)
[2022-02-14] MEDS ORDERED: SODIUM CHLORIDE 0.9% 1,000 ML IV SCH (06:00)
[2022-02-14] MEDS ORDERED: INSULIN REGULAR 100 UNIT/ML SUBCUT SCH (07:30)
[2022-02-14] MEDS: INSULIN LISPRO 100 UNIT/ML SUBCUT SCH ×4 (08:59→21:27)
[2022-02-14] MEDS: GABAPENTIN 600 MG TABLET PO SCH ×2 (10:22→22:36)
[2022-02-14] MEDS: METOPROLOL SUCCINATE XL 25 MG TABLET PO SCH ×2 (10:23→21:21)
[2022-02-14] MEDS: NITROGLYCERIN 2% OINT 1 INCH/GM PACK TOP SCH ×3 (10:24→21:35)
[2022-02-14] MEDS: PANTOPRAZOLE 40 MG TABLET PO SCH (10:25)
[2022-02-14] MEDS: RANOLAZINE 500 MG TABLET PO SCH ×2 (10:25→21:21)
[2022-02-14] MEDS ORDERED: SODIUM CHLORIDE 0.9% 500 ML IV STA (10:55)
[2022-02-14] MEDS: NITROGLYCERIN SL 0.4 MG TABLET SL PRN ×2 (11:28→11:58)
[2022-02-14] MEDS ORDERED: GABAPENTIN 600 MG TABLET PO SCH (12:00)
[2022-02-14] MEDS: NON-FORMULARY MEDICATION (Liraglutide [Victoza 3-Pak] 0.6 mg/0.1 mL (18 mg/3 mL) Pen Injec SUBCUT SCH (12:09)
[2022-02-14] MEDS ORDERED: MORPHINE 2 MG/1 ML SYRINGE IV ONE (12:17)
[2022-02-14] MEDS ORDERED: diphenhydrAMINE CAP 50 MG CAPSULE PO ONE (12:18)
[2022-02-14] MEDS ORDERED: MAGNESIUM SULF RIDER 2 GM/50 ML PREMIX IV PRN (12:18)
[2022-02-14] MEDS ORDERED: DIAZEPAM 5 MG TABLET PO ONE (12:18)
[2022-02-14] MEDS ORDERED: POTASSIUM CHLORIDE RIDER 10 MEQ/100 ML PREMIX IV PRN (12:18)
[2022-02-14] MEDS ORDERED: HEPARIN/NACL 0.9% 2 UNITS/ML 2,000 UNIT/1,000 ML BAG IV ONE (13:45)
[2022-02-14] MEDS ORDERED: MIDAZOLAM 2 MG/2 ML VIAL ONE ×2 (13:45→14:38)
[2022-02-14] MEDS ORDERED: fentaNYL 100 MCG/2 ML VIAL ONE (13:45)
[2022-02-14] MEDS ORDERED: NITROGLYCERIN DRIP 50 MG/250 ML BOTTLE IV ONE (13:48)
[2022-02-14] MEDS ORDERED: VERAPAMIL 5 MG/2 ML VIAL ONE (13:49)
[2022-02-14] MEDS ORDERED: ENOXAPARIN 30 MG/0.3 ML SYRINGE ONE (14:36)
[2022-02-14] MEDS ORDERED: TIROFIBAN 5,000 MCG/100 ML PREMIX IV ONE (15:04)
[2022-02-14] MEDS ORDERED: CLOPIDOGREL 300 MG TABLET ONE (15:14)
[2022-02-14] MEDS ORDERED: ENOXAPARIN 100 MG/ML SYRINGE SUBCUT SCH (16:00)
[2022-02-14] MEDS ORDERED: ONDANSETRON 4 MG/2 ML VIAL IV PRN (16:04)
[2022-02-14] MEDS ORDERED: lisinopriL 2.5 MG TABLET PO SCH (21:00)
[2022-02-14] MEDS ORDERED: ASPIRIN EC 81 MG TABLET PO SCH (21:00)
[2022-02-14] MEDS ORDERED: CLOPIDOGREL 75 MG TABLET PO SCH (21:00)
[2022-02-14] MEDS ORDERED: SIMVASTATIN 20 MG TABLET PO SCH (21:00)
[2022-02-14] MEDS ORDERED: INSULIN GLARGINE 100 UNIT/ML SUBCUT SCH (21:00)
[2022-02-14] MEDS ORDERED: TOPIRAMATE 100 MG TABLET PO SCH (23:00)
[2022-02-14] MEDS ORDERED: ISOSORBIDE MONONITRATE 60 MG TABLET PO SCH (23:00)
[2022-02-15] MEDS: NITROGLYCERIN 2% OINT 1 INCH/GM PACK TOP SCH ×2 (03:04→11:05)
[2022-02-15 04:18] LABS: Basophils # 0.1 10*3/uL (0.0-0.2); Basophils % 0.7 % (0.0-0.8); Eosinophils # 0.4 10*3/uL (0.0-0.87); Eosinophils % 6.1 % (0.00-10.9); Hematocrit 42.1 VOL% (42.0-52.0); Hemoglobin 13.7 GM/DL (14.0-18.0); Immature Granulocytes % 0.7 %; Immature Granulocytes Absolute 0.05 #; Lymphocytes # 2.4 10*3/uL (1.4-4.0); Lymphocytes % 36.3 % (21.2-54.2); Mean Corpuscular HGB Conc 32.5 GM/DL (32-36); Mean Corpuscular Volume 93.8 FL (87-102); Mean Platelet Volume 10.7 FL (9.6-12.0); Monocytes # 0.6 10*3/uL (0.11-0.8); Monocytes % 9.6 % (1.7-12.7); Neutrophils % 46.6 % (38.7-73.9); Platelet Count 183 T/CUMM (130-400); Red Blood Count 4.49 MC/CUMM (3.8-5.5); Red Cell Distribution Width 13.6 % (9.3-17.3); White Blood Count 6.7 T/CUMM (4-12)
[2022-02-15 04:45] LABS: Calcium 8.4 MG/DL (8.5-10.1); Osmolality,Calculated 282.5 MOS/KG (273-304); Potassium 3.8 MMOL/L (3.5-5.1)
[2022-02-15 04:47] LABS: Bilirubin,Total 0.4 MG/DL (0.20-1.00); Calcium 8.2 MG/DL (8.5-10.1); Osmolality,Calculated 284.4 MOS/KG (273-304); Potassium 3.6 MMOL/L (3.5-5.1); Total Protein 6.5 G/DL (6.4-8.2)
[2022-02-15 08:40] VITALS: BP 115/77
[2022-02-15] MEDS: INSULIN LISPRO 100 UNIT/ML SUBCUT SCH (08:45)
[2022-02-15] MEDS ORDERED: FENOFIBRATE 145 MG TABLET PO SCH (09:00)
[2022-02-15] MEDS: METOPROLOL SUCCINATE XL 25 MG TABLET PO SCH (09:09)
[2022-02-15] MEDS: GABAPENTIN 600 MG TABLET PO SCH (09:09)
[2022-02-15] MEDS: PANTOPRAZOLE 40 MG TABLET PO SCH (09:09)
[2022-02-15] MEDS: RANOLAZINE 500 MG TABLET PO SCH (09:09)
[2022-02-15] MEDS: NON-FORMULARY MEDICATION (Liraglutide [Victoza 3-Pak] 0.6 mg/0.1 mL (18 mg/3 mL) Pen Injec SUBCUT SCH (11:05)
== END 2022-02-15 11:06 | disposition home or self-care (01) ==
LOC: SUATTDRO → N.EDINP 03:55 → N.ED 03:55 → N.2W 15:51
PROVIDERS: ADMIT Internal Medicine; ATTEND Internal Medicine

== ENCOUNTER 2022-02-25 22:21 | Observation (INO) ==
[2022-02-25] MEDS ORDERED: MORPHINE 2 MG/1 ML SYRINGE IV STA (22:43)
[2022-02-25] MEDS ORDERED: ONDANSETRON 4 MG/2 ML VIAL IV ONE (22:43)
[2022-02-25 22:55] LABS: Basophils # 0.1 10*3/uL (0.0-0.2); Basophils % 0.6 % (0.0-0.8); Eosinophils # 0.4 10*3/uL (0.0-0.87); Eosinophils % 4.5 % (0.00-10.9); Hematocrit 41.9 VOL% (42.0-52.0); Hemoglobin 13.8 GM/DL (14.0-18.0); Immature Granulocytes % 0.5 %; Immature Granulocytes Absolute 0.04 #; Lymphocytes # 2.4 10*3/uL (1.4-4.0); Lymphocytes % 30.4 % (21.2-54.2); Mean Corpuscular HGB Conc 32.9 GM/DL (32-36); Mean Corpuscular Volume 93.5 FL (87-102); Mean Platelet Volume 10.4 FL (9.6-12.0); Monocytes # 0.7 10*3/uL (0.11-0.8); Monocytes % 9.1 % (1.7-12.7); Neutrophils % 54.9 % (38.7-73.9); Platelet Count 197 T/CUMM (130-400); Red Blood Count 4.48 MC/CUMM (3.8-5.5); Red Cell Distribution Width 13.6 % (9.3-17.3)
[2022-02-25 23:06] LABS: INR 0.9; PT Patient Result 10.4 SECS (10.1-12.1); Partial Thromboplastin Time 27.3 SECS (23.7-32.9)
[2022-02-25 23:21] LABS: Albumin 3.3 G/DL (3.4-5.0); Bilirubin,Total 0.4 MG/DL (0.20-1.00); Osmolality,Calculated 286.3 MOS/KG (273-304); Potassium 3.8 MMOL/L (3.5-5.1); Total Protein 6.7 G/DL (6.4-8.2)
[2022-02-26] MEDS ORDERED: MORPHINE 2 MG/1 ML SYRINGE IV PRN (01:46)
[2022-02-26] MEDS ORDERED: GLUCAGON 1 MG VIAL IM PRN (01:46)
[2022-02-26] MEDS ORDERED: hydrALAZINE 20 MG/1 ML VIAL IV PRN (01:46)
[2022-02-26] MEDS ORDERED: ACETAMINOPHEN 325 MG TABLET PO PRN (01:46)
[2022-02-26] MEDS ORDERED: ONDANSETRON 4 MG/2 ML VIAL IV PRN (01:46)
[2022-02-26] MEDS ORDERED: DEXTROSE 10% 250 ML BAG IV PRN ×2 (01:46→08:54)
[2022-02-26] MEDS ORDERED: cefTRIAXone 1,000 MG in SODIUM CHLORIDE 0.9% 100 ML IV SCH (02:00)
[2022-02-26] MEDS ORDERED: AZITHROMYCIN INJ 500 MG in SODIUM CHLORIDE 0.9% 250 ML IV SCH (02:00)
[2022-02-26] MEDS ORDERED: NITROGLYCERIN SL 0.4 MG TABLET SL PRN (03:16)
[2022-02-26] MEDS ORDERED: tiZANidine 4 MG TABLET PO PRN (03:16)
[2022-02-26] MEDS ORDERED: traMADol 50 MG TABLET PO PRN (03:16)
[2022-02-26] MEDS ORDERED: PROMETHAZINE 25 MG TABLET PO PRN (03:16)
[2022-02-26 04:38] LABS: Basophils % 0.5 % (0.0-0.8); Eosinophils # 0.4 10*3/uL (0.0-0.87); Eosinophils % 4.8 % (0.00-10.9); Hemoglobin 13.1 GM/DL (14.0-18.0); Immature Granulocytes % 0.7 %; Immature Granulocytes Absolute 0.05 #; Lymphocytes # 2.2 10*3/uL (1.4-4.0); Mean Corpuscular Volume 93.8 FL (87-102); Mean Platelet Volume 10.3 FL (9.6-12.0); Monocytes # 0.8 10*3/uL (0.11-0.8); Monocytes % 10.6 % (1.7-12.7); Neutrophils % 54.4 % (38.7-73.9); Platelet Count 178 T/CUMM (130-400); Red Blood Count 4.37 MC/CUMM (3.8-5.5); Red Cell Distribution Width 13.6 % (9.3-17.3); White Blood Count 7.6 T/CUMM (4-12)
[2022-02-26 05:05] LABS: Calcium 8.4 MG/DL (8.5-10.1); Osmolality,Calculated 289.1 MOS/KG (273-304); Potassium 3.9 MMOL/L (3.5-5.1)
[2022-02-26] MEDS ORDERED: ALBUTEROL/IPRATROPIUM 3 ML NEB RESP TX SCH (07:00)
[2022-02-26] MEDS ORDERED: INSULIN LISPRO 100 UNIT/ML SUBCUT SCH (07:30)
[2022-02-26] MEDS ORDERED: TOPIRAMATE 100 MG TABLET PO SCH (09:00)
[2022-02-26] MEDS ORDERED: PANTOPRAZOLE 40 MG TABLET PO SCH (09:00)
[2022-02-26] MEDS ORDERED: ENOXAPARIN 40 MG/0.4 ML SYRINGE SUBCUT SCH (09:00)
[2022-02-26] MEDS ORDERED: METOPROLOL SUCCINATE XL 25 MG TABLET PO SCH (09:00)
[2022-02-26] MEDS ORDERED: RANOLAZINE 500 MG TABLET PO SCH (09:00)
[2022-02-26] MEDS ORDERED: GABAPENTIN 600 MG TABLET PO SCH ×2 (09:00→12:00)
[2022-02-26 17:58] VITALS: BP 130/85
[2022-02-26] MEDS ORDERED: ASPIRIN EC 81 MG TABLET PO SCH (21:00)
[2022-02-26] MEDS ORDERED: CLOPIDOGREL 75 MG TABLET PO SCH (21:00)
[2022-02-26] MEDS ORDERED: lisinopriL 2.5 MG TABLET PO SCH (21:00)
[2022-02-26] MEDS ORDERED: SIMVASTATIN 20 MG TABLET PO SCH (21:00)
[2022-02-26] MEDS ORDERED: ISOSORBIDE MONONITRATE 60 MG TABLET PO SCH (21:00)
[2022-02-27] MEDS ORDERED: FENOFIBRATE 145 MG TABLET PO SCH (09:00)
== END 2022-02-26 13:58 | disposition home or self-care (01) ==
LOC: EDBD → EDUNIT# → N.ED 22:21 → N.EDINP 22:21 → SUATTDRO 02-26 01:46 → N.TELES 02-26 02:41
PROVIDERS: ADMIT Internal Medicine; ATTEND Family Medicine

== ENCOUNTER 2022-05-25 09:11 | Observation (INO) ==
[2022-05-25] MEDS ORDERED: NITROGLYCERIN SL 0.4 MG TABLET SL STA (09:48)
[2022-05-25] MEDS ORDERED: ASPIRIN CHEW 81 MG TABLET PO STA (09:48)
[2022-05-25] MEDS ORDERED: MORPHINE 2 MG/1 ML SYRINGE IV STA (09:48)
[2022-05-25] MEDS ORDERED: ONDANSETRON 4 MG/2 ML VIAL IV STA (09:49)
[2022-05-25 09:51] LABS: Basophils # 0.1 10*3/uL (0.0-0.2); Basophils % 0.8 % (0.0-0.8); Eosinophils # 0.2 10*3/uL (0.0-0.87); Eosinophils % 2.2 % (0.00-10.9); Hematocrit 46.8 VOL% (42.0-52.0); Hemoglobin 15.2 GM/DL (14.0-18.0); Immature Granulocytes % 0.9 %; Immature Granulocytes Absolute 0.07 #; Lymphocytes # 1.6 10*3/uL (1.4-4.0); Lymphocytes % 21.5 % (21.2-54.2); Mean Corpuscular HGB Conc 32.5 GM/DL (32-36); Mean Corpuscular Volume 92.1 FL (87-102); Mean Platelet Volume 10.9 FL (9.6-12.0); Monocytes # 0.7 10*3/uL (0.11-0.8); Monocytes % 9.8 % (1.7-12.7); Neutrophils % 64.8 % (38.7-73.9); Platelet Count 207 T/CUMM (130-400); Red Blood Count 5.08 MC/CUMM (3.8-5.5); Red Cell Distribution Width 13.2 % (9.3-17.3); White Blood Count 7.4 T/CUMM (4-12)
[2022-05-25 10:10] LABS: Albumin 3.9 G/DL (3.4-5.0); Bilirubin,Total 0.4 MG/DL (0.20-1.00); Calcium 9.7 MG/DL (8.5-10.1); Osmolality,Calculated 292.7 MOS/KG (273-304); Potassium 3.7 MMOL/L (3.5-5.1); Total Protein 7.2 G/DL (6.4-8.2)
[2022-05-25] MEDS ORDERED: GLUCAGON 1 MG VIAL IM PRN (11:56)
[2022-05-25] MEDS ORDERED: ACETAMINOPHEN 325 MG TABLET PO PRN (11:56)
[2022-05-25] MEDS ORDERED: ONDANSETRON 4 MG/2 ML VIAL IV PRN (11:56)
[2022-05-25] MEDS ORDERED: DEXTROSE 10% 250 ML BAG IV PRN (12:02)
[2022-05-25] MEDS ORDERED: ALUMINUM/MAGNES/SIMETH MAX STR 30 ML UDCUP PO PRN (12:16)
[2022-05-25] MEDS ORDERED: PROMETHAZINE 25 MG TABLET PO PRN (12:18)
[2022-05-25] MEDS: ENOXAPARIN 40 MG/0.4 ML SYRINGE SUBCUT SCH (12:42)
[2022-05-25] MEDS: INSULIN LISPRO 100 UNIT/ML SUBCUT SCH ×2 (17:31→21:20)
[2022-05-25] MEDS ORDERED: GABAPENTIN 600 MG TABLET PO SCH (21:00)
[2022-05-25] MEDS ORDERED: INSULIN GLARGINE 100 UNIT/ML SUBCUT SCH ×2 (21:00)
[2022-05-25] MEDS: METOPROLOL SUCCINATE XL 25 MG TABLET PO SCH (21:19)
[2022-05-25] MEDS ORDERED: lisinopriL 2.5 MG TABLET PO SCH (23:00)
[2022-05-25] MEDS ORDERED: ISOSORBIDE MONONITRATE 60 MG TABLET PO SCH (23:00)
[2022-05-25] MEDS ORDERED: NITROGLYCERIN SL 0.4 MG TABLET SL PRN (23:48)
[2022-05-26] MEDS ORDERED: MORPHINE 2 MG/1 ML SYRINGE IV PRN (00:17)
[2022-05-26 06:09] LABS: Basophils % 0.6 % (0.0-0.8); Eosinophils # 0.2 10*3/uL (0.0-0.87); Eosinophils % 2.4 % (0.00-10.9); Hematocrit 43.2 VOL% (42.0-52.0); Immature Granulocytes % 0.7 %; Immature Granulocytes Absolute 0.05 #; Lymphocytes # 1.8 10*3/uL (1.4-4.0); Lymphocytes % 26.3 % (21.2-54.2); Mean Corpuscular HGB Conc 32.4 GM/DL (32-36); Mean Corpuscular Volume 93.1 FL (87-102); Monocytes # 0.7 10*3/uL (0.11-0.8); Monocytes % 10.7 % (1.7-12.7); Neutrophils % 59.3 % (38.7-73.9); Platelet Count 189 T/CUMM (130-400); Red Blood Count 4.64 MC/CUMM (3.8-5.5); Red Cell Distribution Width 13.5 % (9.3-17.3); White Blood Count 6.8 T/CUMM (4-12)
[2022-05-26 06:37] LABS: Albumin 3.2 G/DL (3.4-5.0); Bilirubin,Total 0.4 MG/DL (0.20-1.00); Calcium 8.8 MG/DL (8.5-10.1); Osmolality,Calculated 290.5 MOS/KG (273-304); Potassium 3.8 MMOL/L (3.5-5.1); Risk Ratio 6.67; Thyroid Stimulating Hormone 0.744 uIU/ml (0.358-3.74); Total Protein 6.7 G/DL (6.4-8.2); VLDL Cholesterol 77.8 MG/DL
[2022-05-26] MEDS ORDERED: PANTOPRAZOLE 40 MG TABLET PO SCH (09:00)
[2022-05-26] MEDS ORDERED: ATORVASTATIN 20 MG TABLET PO SCH (09:00)
[2022-05-26] MEDS ORDERED: GABAPENTIN 600 MG TABLET PO SCH (09:00)
[2022-05-26] MEDS: INSULIN LISPRO 100 UNIT/ML SUBCUT SCH ×2 (09:00→13:13)
[2022-05-26] MEDS ORDERED: ASPIRIN EC 81 MG TABLET PO SCH (09:00)
[2022-05-26] MEDS: METOPROLOL SUCCINATE XL 25 MG TABLET PO SCH (09:00)
[2022-05-26 11:33] VITALS: BP 131/85
[2022-05-26] MEDS: ENOXAPARIN 40 MG/0.4 ML SYRINGE SUBCUT SCH (13:13)
== END 2022-05-26 12:55 | disposition home or self-care (01) ==
LOC: N.EDINP 09:11 → N.ED 09:11 → N.EDINP 14:00 → N.TELES 14:07
PROVIDERS: ADMIT Internal Medicine; ATTEND Internal Medicine